=== PATIENT | male | born 1960 | race Two or more races ===

== ENCOUNTER 2021-04-13 12:27 | Emergency (ER) | payer MEDICARE, MEDICAID ==
[~2021-04-13] VITALS: Ht 193 cm; Wt 117.9 kg
[2021-04-13 13:18] LABS: Basophils # (auto) 0.1 10 ^3/uL (0-0.2); Hemoglobin 15.9 g/dL (13.5-17.5); Lymphocytes % (auto) 38.4 % (10.0-50.0)
[2021-04-13 13:19] LABS: Basophils % (auto) 0.9 % (0.0-2.0); Eosinophils # (auto) 0.8 10 ^3/uL (0-0.8); Eosinophils % (auto) 9.5 % (0.0-7.0); Hematocrit 46.6 % (41.0-53.0); Lymphocytes # (auto) 3.1 10 ^3/uL (0.4-5.4); Mean Corpuscular Hemoglobin 34.3 pg (28.0-32.0); Mean Corpuscular Hgb Conc. 34.1 g/dL (32.0-36.0); Mean Corpuscular Volume 100.7 fL (80.0-100.0); Monocytes # (auto) 0.9 10 ^3/uL (0-1.3); Monocytes % (auto) 11.9 % (0.0-12.0); Neutrophils # (auto) 3.1 10 ^3/uL (1.6-8.6); Neutrophils % (auto) 39.3 % (37.0-80.0); Red Blood Cells 4.63 10^6/uL (4.5-5.90); Red Cell Distribution Width 14.9 % (11.8-14.3)
[2021-04-13 13:21] LABS: Nucleated Red Blood Cells % 0.2 %
[2021-04-13 14:00] LABS: Phenytoin (Dilantin) 23.4 ug/mL (10-20)
[2021-04-13 14:45] LABS: Anion Gap 5 (5-15); Carbon Dioxide 27 mmol/L (21-32); Chloride 105 mmol/L (98-107); Glucose 84 mg/dL (74-106); Potassium 4.2 mmol/L (3.5-5.1); Sodium 137 mmol/L (136-145)
[2021-04-13 14:46] LABS: Alanine Aminotransferase 24 U/L (16-61); Albumin 2.8 g/dL (3.4-5.0); Alkaline Phosphatase 160 U/L (45-117); Aspartate Aminotransferase 29 U/L (15-37); BUN/Creatinine Ratio 19.6; Bilirubin, Total 0.3 mg/dL (0.2-1.0); Blood Urea Nitrogen 10 mg/dL (7-18); Calcium 8.1 mg/dL (8.5-10.1); GFR African American 212 mL/min; GFR Non-African American 176 mL/min; Total Protein 7.5 g/dL (6.4-8.2)
[2021-04-13 16:53] VITALS: BP 132/74
== END 2021-04-13 17:32 | disposition home or self-care (01) ==
LOC: EDBD 12:27 → ER 12:27
DX: R89.2 Abnormal level of other drugs, medicaments and biological substances in specimens from other organs, systems and tissues (principal); J44.9 Chronic obstructive pulmonary disease, unspecified; K21.9 Gastro-esophageal reflux disease without esophagitis; E78.5 Hyperlipidemia, unspecified; Z90.49 Acquired absence of other specified parts of digestive tract
CPT/HCPCS: 36415; 80053; 80184; 80185; 85025; 93005

== ENCOUNTER 2022-07-09 18:25 | Emergency (ER) | payer OTHER, MEDICARE, MEDICAID ==
[~2022-07-09] VITALS: Ht 193 cm; Wt 120.0 kg
[2022-07-09 22:59] LABS: Basophils # (auto) 0.1 10 ^3/uL (0-0.2); Basophils % (auto) 0.6 % (0.0-2.0); Eosinophils # (auto) 0.6 10 ^3/uL (0-0.8); Eosinophils % (auto) 7.2 % (0.0-7.0); Hematocrit 44.5 % (41.0-53.0); Hemoglobin 14.8 g/dL (13.5-17.5); Lymphocytes # (auto) 2.2 10 ^3/uL (0.4-5.4); Lymphocytes % (auto) 26.9 % (10.0-50.0); Mean Corpuscular Hemoglobin 33.7 pg (28.0-32.0); Mean Corpuscular Hgb Conc. 33.2 g/dL (32.0-36.0); Mean Corpuscular Volume 101.4 fL (80.0-100.0); Monocytes # (auto) 0.9 10 ^3/uL (0-1.3); Monocytes % (auto) 11.5 % (0.0-12.0); Neutrophils # (auto) 4.4 10 ^3/uL (1.6-8.6); Neutrophils % (auto) 53.8 % (37.0-80.0); Red Blood Cells 4.39 10^6/uL (4.5-5.90); Red Cell Distribution Width 14.8 % (11.8-14.3); White Blood Cell 8.2 10^3/uL (4.4-10.8)
[2022-07-09 23:12] LABS: INR 1.07 (0.9-1.15)
[2022-07-09 23:16] LABS: Albumin 2.5 g/dL (3.4-5.0); BUN/Creatinine Ratio 36.1 (10.0-20.0); Calcium 8.2 mg/dL (8.5-10.1); Potassium 3.7 mmol/L (3.5-5.1)
[2022-07-09 23:30] LABS: Bilirubin, Total 0.5 mg/dL (0.2-1.0); Total Protein 7.7 g/dL (6.4-8.2)
[2022-07-10] MEDS ORDERED: HYDROcodone-ACET 10/325MG TAB PO ONE
[2022-07-10 09:20] VITALS: BP 115/73
== END 2022-07-10 10:53 | disposition home or self-care (01) ==
LOC: EDBD 18:25 → EDSEX 18:25 → ER 18:30
DX: K62.5 Hemorrhage of anus and rectum (principal); R94.31 Abnormal electrocardiogram [ECG] [EKG]; J44.9 Chronic obstructive pulmonary disease, unspecified; K21.9 Gastro-esophageal reflux disease without esophagitis; E78.5 Hyperlipidemia, unspecified; Z90.49 Acquired absence of other specified parts of digestive tract
CPT/HCPCS: 36415; 71045; 71250; 74176; 80053; 84484; 85025; 85610; 93005

== ENCOUNTER 2023-11-13 11:25 | Inpatient (IN) | payer MEDICARE, MEDICAID ==
[~2023-11-13] VITALS: Ht 180.3 cm; Wt 116.8 kg
[2023-11-13 11:51] LABS: Basophils # (auto) 0.1 10 ^3/uL (0-0.2); Eosinophils # (auto) 0.4 10 ^3/uL (0-0.8); Hemoglobin 14.7 g/dL (13.5-17.5); Monocytes # (auto) 0.8 10 ^3/uL (0-1.3)
[2023-11-13 11:53] LABS: Basophils % (auto) 0.7 % (0.0-2.0); Eosinophils % (auto) 4.1 % (0.0-7.0); Hematocrit 43.3 % (41.0-53.0); Lymphocytes # (auto) 1.9 10 ^3/uL (0.4-5.4); Lymphocytes % (auto) 20.6 % (10.0-50.0); Mean Corpuscular Hemoglobin 35.2 pg (28.0-32.0); Mean Corpuscular Hgb Conc. 33.8 g/dL (32.0-36.0); Monocytes % (auto) 8.2 % (0.0-12.0); Neutrophils # (auto) 6.3 10 ^3/uL (1.6-8.6); Neutrophils % (auto) 66.4 % (37.0-80.0); Nucleated Red Blood Cells % 0.1 %; Platelet Count (auto) 202 10^3/uL (140-450); Red Blood Cells 4.16 10^6/uL (4.5-5.90); Red Cell Distribution Width 15.3 % (11.8-14.3); White Blood Cell 9.5 10^3/uL (4.4-10.8)
[2023-11-13 12:00] VITALS: PULSE 70; RESP 14; O2SAT 97
[2023-11-13 12:18] LABS: Alanine Aminotransferase 25 U/L (7-40); Albumin 3.6 g/dL (3.2-4.8); Alkaline Phosphatase 189 U/L (46-116); Anion Gap 7 (5-15); Aspartate Aminotransferase 32 U/L (13-40); Bilirubin, Total 0.2 mg/dL (0.2-1.0); Blood Urea Nitrogen 16 mg/dL (9-23); Calcium 8.4 mg/dL (8.7-10.4); Carbon Dioxide 31 mmol/L (20-30); Chloride 100 mmol/L (98-107); Glucose 116 mg/dL (74-106); Magnesium 1.7 mg/dL (1.6-2.6); Potassium 4.4 mmol/L (3.5-5.1); Sodium 138 mmol/L (136-145); Total Protein 7.2 g/dL (5.7-8.2)
[2023-11-13] MEDS: LACTULOSE 20Gm/30ML SOLN PO ONE (13:46)
[2023-11-13 20:00] VITALS: PULSE 85; RESP 18; O2SAT 95
[2023-11-13] MEDS ORDERED: ONDANSETRON HCL 4 MG/2 ML VIAL IV PRN (21:30)
[2023-11-13] MEDS ORDERED: TEMAZEPAM 15 MG CAP PO PRN (21:30)
[2023-11-13] MEDS ORDERED: ALBUTEROL SULF 2.5 MG/0.5ML(0.5%) NEB SOLN NEB PRN (21:30)
[2023-11-13] MEDS: ATORVASTATIN 20 MG TAB PO SCH (22:00)
[2023-11-13] MEDS: APIXABAN 5 MG TAB PO SCH (22:00)
[2023-11-13 22:22] LABS: Anion Gap 4 (5-15); Carbon Dioxide 33 mmol/L (20-30); Chloride 100 mmol/L (98-107); Potassium 3.8 mmol/L (3.5-5.1); Sodium 137 mmol/L (136-145)
[2023-11-13 22:23] LABS: Calcium 8.6 mg/dL (8.7-10.4)
[2023-11-13 22:28] LABS: BUN/Creatinine Ratio 19.6 (10.0-20.0); Blood Urea Nitrogen 10 mg/dL (9-23); Glucose 126 mg/dL (74-106)
[2023-11-13 22:39] LABS: INR 1.09 (0.9-1.15); Partial Thromboplastin Time 31.6 SEC (24.5-34.5); Prothrombin Time 11.5 sec (9.3-11.8)
[2023-11-13 22:46] VITALS: BP 107/51; PULSE 87; RESP 18; TEMP 99.7; O2SAT 95
[2023-11-14] VITALS (8 sets, daily range): BP systolic 96–121; BP diastolic 48–78; PULSE 68–77; RESP 16–18; TEMP 97.6–99.3; O2SAT 92–100
[2023-11-14] MEDS: FUROSEMIDE 40 MG TAB PO SCH (05:37)
[2023-11-14] MEDS: LACTULOSE 20Gm/30ML SOLN PO SCH (10:00)
[2023-11-14] MEDS ORDERED: LORazepam 2MG/ML-1ML VIAL IV PRN (17:30)
[2023-11-14] MEDS: FUROSEMIDE 20 MG/2 ML VIAL IV SCH (18:38)
[2023-11-14] MEDS: MUPIROCIN 2% OINT 15gm or 22gm FOR MRSA NARES EACHNOSTRI SCH (22:02)
[2023-11-15] VITALS (8 sets, daily range): BP systolic 103–147; BP diastolic 54–77; PULSE 67–95; RESP 16–20; TEMP 97.6–98.8; O2SAT 96–100
[2023-11-15] MEDS ORDERED: ATOR20TA50 PO (09:34)
[2023-11-15] MEDS ORDERED: APIX5TAB PO (09:34)
[2023-11-15] MEDS ORDERED: CETI-120 PO (09:34)
[2023-11-15] MEDS ORDERED: PHEN1CAP38 PO (09:34)
[2023-11-15] MEDS ORDERED: LOSA-535 PO (09:34)
[2023-11-15] MEDS ORDERED: ASCO500T11 PO (09:34)
[2023-11-15] MEDS ORDERED: PHEN32.44 PO (09:34)
[2023-11-15] MEDS ORDERED: POTA8TAB38 PO (09:34)
[2023-11-15] MEDS ORDERED: FERR325T20 PO (09:34)
[2023-11-15] MEDS ORDERED: FURO40TA4 PO (09:34)
[2023-11-15] MEDS ORDERED: FAMO-12 PO (09:34)
[2023-11-15] MEDS ORDERED: ESCI1TAB36 PO (09:34)
[2023-11-15] MEDS ORDERED: ASPI81CH74 PO (09:34)
[2023-11-15 11:19] LABS: Anion Gap 7 (5-15); Carbon Dioxide 34 mmol/L (20-31); Chloride 99 mmol/L (98-107); Hematocrit 44.5 % (41.0-53.0); Hemoglobin 15.5 g/dL (13.5-17.5); Mean Corpuscular Hemoglobin 36.3 pg (28.0-32.0); Mean Corpuscular Hgb Conc. 34.9 g/dL (32.0-36.0); Platelet Count (auto) 185 10^3/uL (140-450); Potassium 3.7 mmol/L (3.5-5.1); Red Blood Cells 4.28 10^6/uL (4.5-5.90); Red Cell Distribution Width 14.9 % (11.8-14.3); Sodium 140 mmol/L (136-145); White Blood Cell 9.7 10^3/uL (4.4-10.8)
[2023-11-15 11:20] LABS: Calcium 8.9 mg/dL (8.7-10.4)
[2023-11-15 11:23] LABS: Basophils % (manual) 0 (0.0-2.0); Blast Cells 0; Metamyelocytes % 0; Myelocytes % 0; Promyelocytes % 0; Reactive Lymphocytes 0
[2023-11-15 11:25] LABS: BUN/Creatinine Ratio 30.8 (10.0-20.0); Blood Urea Nitrogen 12 mg/dL (9-23); Glucose 86 mg/dL (74-106)
[2023-11-15 12:02] LABS: Band Neutrophils % (manual) 16; Eosinophils % (manual) 1 (0-7); Lymphocytes % (manual) 7 (10.0-50.0); Monocytes % (manual) 3 (0-12)
[2023-11-15 12:03] LABS: Platelet Estimate Adequate
[2023-11-15 18:19] LABS: Urine Bacteria FEW /hpf (None Seen); Urine Blood 3+ /uL (Negative); Urine Clarity Turbid (Clear); Urine Color Light-Orange (Yellow); Urine Mucus FEW (None Seen); Urine Protein, UAD 1+ (Negative); Urine Specific Gravity 1.023 (1.001-1.035); Urine Urobilinogen 4 mg/dL (Negative); Urine WBC 353 /hpf (0 - 3); Urine WBC Clumps PRESENT /hpf (None Seen); Urine pH 7.5 (5.0-9.0)
[2023-11-15] MEDS: cefTRIAXone 1GM/50ML D5W 50 ML IV ONE (22:57)
[2023-11-15] MEDS ORDERED: LORazepam 2MG/ML-1ML VIAL IV PRN (23:15)
[2023-11-16] VITALS (7 sets, daily range): BP systolic 87–121; BP diastolic 46–63; PULSE 70–86; RESP 15–19; TEMP 97.2–98.2; O2SAT 94–99
[2023-11-16] MEDS: PHENobarbital 32.4 MG TAB PO ONE (00:32)
[2023-11-16] MEDS: PHENobarbital 32.4 MG TAB PO SCH ×2 (05:40→13:49)
[2023-11-16] MEDS: cefTRIAXone 1GM/50ML D5W 50 ML IV SCH (09:16)
[2023-11-16 11:54] LABS: Basophils # (auto) 0 10 ^3/uL (0-0.2); Basophils % (auto) 0.7 % (0.0-2.0); Eosinophils # (auto) 0.4 10 ^3/uL (0-0.8); Eosinophils % (auto) 5.9 % (0.0-7.0); Hematocrit 40.1 % (41.0-53.0); Hemoglobin 13.6 g/dL (13.5-17.5); Lymphocytes # (auto) 1.6 10 ^3/uL (0.4-5.4); Lymphocytes % (auto) 23.8 % (10.0-50.0); Mean Corpuscular Hemoglobin 34.8 pg (28.0-32.0); Mean Corpuscular Hgb Conc. 33.8 g/dL (32.0-36.0); Mean Corpuscular Volume 102.9 fL (80.0-100.0); Monocytes # (auto) 1.1 10 ^3/uL (0-1.3); Monocytes % (auto) 16.8 % (0.0-12.0); Neutrophils # (auto) 3.6 10 ^3/uL (1.6-8.6); Neutrophils % (auto) 52.8 % (37.0-80.0); Nucleated Red Blood Cells % 0.1 %; Platelet Count (auto) 147 10^3/uL (140-450); Red Cell Distribution Width 14.6 % (11.8-14.3); White Blood Cell 6.8 10^3/uL (4.4-10.8)
[2023-11-16 12:10] LABS: Chloride 100 mmol/L (98-107); Potassium 3.1 mmol/L (3.5-5.1)
[2023-11-16 12:11] LABS: Carbon Dioxide 34 mmol/L (20-31)
[2023-11-16 12:14] LABS: Calcium 8.3 mg/dL (8.7-10.4)
[2023-11-16 12:16] LABS: BUN/Creatinine Ratio 26.8 (10.0-20.0); Blood Urea Nitrogen 11 mg/dL (9-23); Glucose 125 mg/dL (74-106)
[2023-11-16 12:40] LABS: Anion Gap 4 (5-15); Sodium 138 mmol/L (136-145)
[2023-11-16] MEDS: POTASSIUM EFFERVESENT TAB 25 MEQ PO ONE (13:40)
[2023-11-17] VITALS (10 sets, daily range): BP systolic 94–125; BP diastolic 58–70; PULSE 64–85; RESP 18–20; TEMP 97.5–98; O2SAT 96–100
[2023-11-17 06:24] LABS: Basophils # (auto) 0.1 10 ^3/uL (0-0.2); Eosinophils # (auto) 0.5 10 ^3/uL (0-0.8)
[2023-11-17 06:26] LABS: Basophils % (auto) 0.9 % (0.0-2.0); Eosinophils % (auto) 7.1 % (0.0-7.0); Hematocrit 39.6 % (41.0-53.0); Hemoglobin 13.4 g/dL (13.5-17.5); Lymphocytes # (auto) 2.1 10 ^3/uL (0.4-5.4); Lymphocytes % (auto) 31.6 % (10.0-50.0); Mean Corpuscular Hemoglobin 35.2 pg (28.0-32.0); Mean Corpuscular Hgb Conc. 33.8 g/dL (32.0-36.0); Mean Corpuscular Volume 104.1 fL (80.0-100.0); Monocytes # (auto) 1.1 10 ^3/uL (0-1.3); Monocytes % (auto) 16.1 % (0.0-12.0); Neutrophils # (auto) 2.9 10 ^3/uL (1.6-8.6); Neutrophils % (auto) 44.3 % (37.0-80.0); Nucleated Red Blood Cells % 0.1 %; Platelet Count (auto) 151 10^3/uL (140-450); Red Cell Distribution Width 15.1 % (11.8-14.3); White Blood Cell 6.6 10^3/uL (4.4-10.8)
[2023-11-17 06:28] LABS: Chloride 102 mmol/L (98-107); Potassium 3.7 mmol/L (3.5-5.1); Sodium 137 mmol/L (136-145)
[2023-11-17 06:29] LABS: Anion Gap 2 (5-15); Carbon Dioxide 33 mmol/L (20-31)
[2023-11-17 06:30] LABS: Calcium 8.6 mg/dL (8.7-10.4)
[2023-11-17 06:34] LABS: Glucose 91 mg/dL (74-106)
[2023-11-17 06:35] LABS: Blood Urea Nitrogen 6 mg/dL (9-23)
[2023-11-18] VITALS (8 sets, daily range): BP systolic 109–126; BP diastolic 61–80; PULSE 74–86; RESP 17–20; TEMP 97.6–98.7; O2SAT 94–99
[2023-11-18 07:41] LABS: Basophils # (auto) 0.1 10 ^3/uL (0-0.2); Eosinophils # (auto) 0.6 10 ^3/uL (0-0.8); Hematocrit 40.1 % (41.0-53.0); Hemoglobin 13.6 g/dL (13.5-17.5); Monocytes # (auto) 0.8 10 ^3/uL (0-1.3); Neutrophils # (auto) 2.4 10 ^3/uL (1.6-8.6); White Blood Cell 5.8 10^3/uL (4.4-10.8)
[2023-11-18 07:45] LABS: Eosinophils % (auto) 9.9 % (0.0-7.0); Lymphocytes % (auto) 33.9 % (10.0-50.0); Mean Corpuscular Hemoglobin 34.9 pg (28.0-32.0); Mean Corpuscular Hgb Conc. 33.9 g/dL (32.0-36.0); Monocytes % (auto) 13.3 % (0.0-12.0); Neutrophils % (auto) 41.9 % (37.0-80.0); Nucleated Red Blood Cells % 0.3 %; Platelet Count (auto) 180 10^3/uL (140-450); Red Blood Cells 3.89 10^6/uL (4.5-5.90); Red Cell Distribution Width 14.6 % (11.8-14.3)
[2023-11-18 07:54] LABS: Anion Gap 5 (5-15); Carbon Dioxide 34 mmol/L (20-31); Chloride 102 mmol/L (98-107); Potassium 3.9 mmol/L (3.5-5.1); Sodium 141 mmol/L (136-145)
[2023-11-18 07:56] LABS: Calcium 8.8 mg/dL (8.7-10.4)
[2023-11-18 08:00] LABS: Glucose 91 mg/dL (74-106)
[2023-11-18 08:01] LABS: BUN/Creatinine Ratio 19.4 (10.0-20.0); Blood Urea Nitrogen 6 mg/dL (9-23)
[2023-11-18] MEDS: FUROSEMIDE 20 MG/2 ML VIAL IV ONE (09:53)
[2023-11-18] MEDS: PHENYTOIN SODIUM 100 MG CAP PO SCH (22:00)
[2023-11-19] VITALS (8 sets, daily range): BP systolic 112–124; BP diastolic 65–75; PULSE 58–92; RESP 16–20; TEMP 97.6–98.9; O2SAT 93–97
[2023-11-19 07:40] LABS: Basophils # (auto) 0.1 10 ^3/uL (0-0.2); Eosinophils # (auto) 0.6 10 ^3/uL (0-0.8); Hemoglobin 13.9 g/dL (13.5-17.5); Monocytes # (auto) 0.6 10 ^3/uL (0-1.3); Monocytes % (auto) 10.7 % (0.0-12.0)
[2023-11-19 07:44] LABS: Basophils % (auto) 1.3 % (0.0-2.0); Eosinophils % (auto) 11.5 % (0.0-7.0); Hematocrit 40.3 % (41.0-53.0); Lymphocytes # (auto) 2.1 10 ^3/uL (0.4-5.4); Lymphocytes % (auto) 39.1 % (10.0-50.0); Mean Corpuscular Hemoglobin 35.3 pg (28.0-32.0); Mean Corpuscular Hgb Conc. 34.5 g/dL (32.0-36.0); Mean Corpuscular Volume 102.6 fL (80.0-100.0); Neutrophils % (auto) 37.4 % (37.0-80.0); Nucleated Red Blood Cells % 0.3 %; Platelet Count (auto) 182 10^3/uL (140-450); Red Blood Cells 3.93 10^6/uL (4.5-5.90); White Blood Cell 5.3 10^3/uL (4.4-10.8)
[2023-11-19 08:00] LABS: Chloride 101 mmol/L (98-107); Potassium 4.2 mmol/L (3.5-5.1); Sodium 141 mmol/L (136-145)
[2023-11-19 08:01] LABS: Anion Gap 4 (5-15); Calcium 8.8 mg/dL (8.7-10.4); Carbon Dioxide 36 mmol/L (20-31)
[2023-11-19 08:06] LABS: PSA Free 0.06 ng/mL; Prostate Specific Antigen 0.3 ng/mL (0.0-4.0)
[2023-11-19 08:06] LABS: BUN/Creatinine Ratio 22.9 (10.0-20.0); Blood Urea Nitrogen 8 mg/dL (9-23); Glucose 94 mg/dL (74-106)
[2023-11-20] VITALS (7 sets, daily range): BP systolic 96–113; BP diastolic 58–75; PULSE 66–90; RESP 18–21; TEMP 97.6–97.9; O2SAT 93–99
[2023-11-20 06:22] LABS: Basophils # (auto) 0.1 10 ^3/uL (0-0.2); Chloride 102 mmol/L (98-107); Eosinophils # (auto) 0.7 10 ^3/uL (0-0.8); Lymphocytes # (auto) 2.4 10 ^3/uL (0.4-5.4); Monocytes # (auto) 0.7 10 ^3/uL (0-1.3); Neutrophils # (auto) 2.4 10 ^3/uL (1.6-8.6); Nucleated Red Blood Cells % 0.3 %; Platelet Count (auto) 188 10^3/uL (140-450); Potassium 3.9 mmol/L (3.5-5.1); Sodium 137 mmol/L (136-145)
[2023-11-20 06:23] LABS: Anion Gap 3 (5-15); Calcium 8.8 mg/dL (8.7-10.4); Carbon Dioxide 32 mmol/L (20-31)
[2023-11-20 06:24] LABS: Eosinophils % (auto) 10.7 % (0.0-7.0); Hematocrit 39.2 % (41.0-53.0); Hemoglobin 13.6 g/dL (13.5-17.5); Mean Corpuscular Hemoglobin 35.6 pg (28.0-32.0); Mean Corpuscular Hgb Conc. 34.8 g/dL (32.0-36.0); Mean Corpuscular Volume 102.5 fL (80.0-100.0); Monocytes % (auto) 11.2 % (0.0-12.0); Neutrophils % (auto) 39.1 % (37.0-80.0); Red Blood Cells 3.83 10^6/uL (4.5-5.90); Red Cell Distribution Width 14.5 % (11.8-14.3); White Blood Cell 6.2 10^3/uL (4.4-10.8)
[2023-11-20 06:28] LABS: BUN/Creatinine Ratio 19.4 (10.0-20.0); Blood Urea Nitrogen 6 mg/dL (9-23); Glucose 88 mg/dL (74-106)
== END 2023-11-20 15:15 | disposition home or self-care (01) | DRG 92 ==
LOC: EDBD 11:25 → ER 11:25 → EDUNIT# 11:25 → CENTRAL 21:40 → OVERFLOW 21:40 → CENTRAL 23:51 → TELE-CENTR 11-16 03:36
PROVIDERS: ADMIT Internal Medicine; ATTEND Internal Medicine
DX: G92.8 Other toxic encephalopathy (principal); D68.59 Other primary thrombophilia; J44.1 Chronic obstructive pulmonary disease with (acute) exacerbation; E72.20 Disorder of urea cycle metabolism, unspecified; I42.9 Cardiomyopathy, unspecified; N30.00 Acute cystitis without hematuria; G40.409 Other generalized epilepsy and epileptic syndromes, not intractable, without status epilepticus; E87.6 Hypokalemia; I50.810 Right heart failure, unspecified; T42.0X5A Adverse effect of hydantoin derivatives, initial encounter; K21.9 Gastro-esophageal reflux disease without esophagitis; E78.5 Hyperlipidemia, unspecified; F79 Unspecified intellectual disabilities; E66.9 Obesity, unspecified; N40.0 Benign prostatic hyperplasia without lower urinary tract symptoms; R32 Unspecified urinary incontinence; R31.9 Hematuria, unspecified; I35.1 Nonrheumatic aortic (valve) insufficiency; I71.21 Aneurysm of the ascending aorta, without rupture; Z90.49 Acquired absence of other specified parts of digestive tract; Z74.01 Bed confinement status; Z68.35 Body mass index [BMI] 35.0-35.9, adult; Y92.9 Unspecified place or not applicable
CPT/HCPCS: 36415; 70450; 71045; 74176; 80048; 80053; 80184; 80185; 81001; 82140; 82962; 83605; 83735; 83880; 84154; 84484; 85007; 85025; 85027; 85610; 85730; 87081; 92610; 93005; 93306; 93970; 95819; G0378

== ENCOUNTER 2024-04-28 13:08 | Inpatient (IN) | payer MEDICARE, MEDICAID ==
[~2024-04-28] VITALS: Ht 182.9 cm; Wt 127.0 kg
[~2024-04-28 13:08] MED LIST: APIX5TAB PO; ASCO500T11 PO; ASPI81CH74 PO; ATOR20TA50 PO; CETI-120 PO; ESCI1TAB36 PO; FAMO-12 PO; FERR325T20 PO; FURO40TA4 PO; LOSA-535 PO; PHEN1CAP38 PO; PHEN32.44 PO; POTA8TAB38 PO
--- NOTE | 2024-04-28 13:20 | ECG ---
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
--- NOTE | 2024-04-28 13:23 | ED.PDOC ---
SOB-HPI HPI Comments 64 year old male TOM presents to the ED with chief complaint of SOB/cyanosis. EMS reports patient was being fed for lunch time at [facility] and when his nurse came by to check on him, patient was noted to be cyanotic around the mouth and foaming at the mouth. EMS relays 911 was called immediately and upon their arrival, patient was still cyanotic and foaming, so they immediately started suctioning on route to the ED. EMS states patient stopped foaming and cyanosis was resolved once patient was placed on 15L of O2 with an spO2 of 97% and patient was able to state he is "fine," but unable to provide his name. EMS notes patient went in and out of consciousness on route and needed to be sternal rubbed multiple times to wake up. EMS reports patient is currently on 10L of O2 with a mask at this time. Patient unable to answer any further questions at this time, unknown baseline mentation. Time Seen by MD: 13:14 Primary Care Provider: UNKNOWN Reviewed notes: Nurses Notes, Bander Notes, Medications, Allergies Information Source: Patient, Emergency Med Personnel Mode of Arrival: EMS Severity: Moderate Timing: Hours Duration: Since onset Context: At Rest PE Risk Factors: None History of: COPD, CHF Prehospital treatment: Oxygen Modifying Factors: Nothing Past Medical History PAST MEDICAL HISTORY: Arthritis, CHF, COPD, Depression, GERD, High Lipids, Seizures Past Medical History (Other): Marfan's Syndrome, Intellectual disability, Cardiomyopathy, Aortic Aneurygen, Aortic valve insufficiency Surgical History: Cholecystectomy Family History Family History: Unknown Social History Smoker: Non-Smoker Alcohol: Denies ETOH Use Drugs: Denies Drug Use Lives In: Residential Constitutional: denies: chills, diaphoresis, fatigue, fever, malaise, sweats, weakness, others EENTM: reports: others (Foaming at mouth); denies: blurred vision, double vision, ear bleeding, ear discharge, ear drainage, ear pain, ear ringing, eye pain, eye redness, hearing loss, mouth pain, mouth swelling, nasal discharge, nose bleeding, nose congestion, nose pain, photophobia, tearing, throat pain, throat swelling, voice changes Respiratory: reports: shortness of breath, others (Cyanosis of mouth); denies: cough, hemoptysis, orthopnea, SOB at rest, SOB with excertion, stridor, wheezing Cardiovascular: denies: chest pain, dizzy spells, diaphoresis, Dyspnea on exertion, edema, irregular heart beat, left arm pain, lightheadedness, palpitations, PND, syncope, others Gastrointestinal: denies: abdomen distended, abdominal pain, blood streaked bowels, constipated, diarrhea, dysphagia, difficulty swallowing, hematemesis, melena, nausea, poor appetite, poor fluid intake, rectal bleeding, rectal pain, vomiting, others Genitourinary: denies: burning, dysuria, flank pain, frequency, hematuria, incontinence, penile discharge, penile sore, pain, testicle pain, testicle swelling, urgency, others Neurological: denies: dizziness, fainting, headache, left sided numbness, left sided weakness, numbness, paresthesia, pre-existing deficit, right sided numbne ss, right sided weakness, seizure, speech problems, tingling, tremors, weakness, others Musculoskeletal: denies: back pain, gout, joint pain, joint swelling, muscle pain, muscle stiffness, neck pain, others Integumetry: denies: bruises, change in color, change in hair/nails, dryness, laceration, lesions, lumps, rash, wounds, others Allergic/Immunocompromised: denies: Difficulty Healing, Frequent Infections, Hives, Itching, others Hematologic/Lymphatic: denies: anemia, blood clots, easy bleeding, easy bruising, swollen glands, others Endocrine: denies: excessive hunger, excessive sweating, excessive thirst, excessive urination, flushing, intolerance to cold, intolerance to heat, unexplained weight gain, unexplained weight loss, others Psychiatric: denies: anxiety, bipolar disorder, depression, hopeless, panic disorder, schizophrenia, sleepless, suicidal, others Unable to Obtain due to: Altered Mental Status All Other Systems: Reviewed and Negative Physical Exam General Appearance: Moderate Distress HEENT: Normal ENT Inspection, Pharynx Normal, TMs Normal Neck: Limited Range of Motion, Non-Tender, Normal, Normal Inspection Respiratory: Chest Non-Tender, Decreased Breath Sounds, No Accessory Muscle Use, Respiratory Distress Cardiovascular: No Edema, No JVD, No Murmur, No Gallop, Normal Peripheral Pulses, Regular Rate/Rhythm Breast Exam: Deferred Gastrointestinal: No Organomegaly, Non Tender, No Pulsatile Mass, Normal Bowel Sounds, Soft Genitalia: Deferred Pelvic: Deferred Rectal: Deferred Extremities: No calf tenderness, Normal capillary refill, Pedal edema Musculoskeletal : Apperance: Normal 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 Was a procedure done?: No Differential Dx Differential Diagnosis: Asthma, Bronchitis, CHF, COPD, Pneumonia X-Ray, Labs, Meds, VS Vital Signs Date Time Temp Pulse Resp B/P (MAP) Pulse Ox O2 Delivery O2 Flow Rate FiO2 04/28/24 14:44 Simple Mask* 6 50 04/28/24 14:44 96.7 80 15 111/57 (75) 98 96.7 04/28/24 13:27 96.5 89 8 122/73 (89) 94 04/28/24 13:23 88 04/28/24 13:16 88 Lab Test 04/28/24 15:39 04/28/24 15:28 04/28/24 15:19 04/28/24 14:45 Range/Units Urine Color Light-yellow Yellow Urine Clarity Clear Clear Urine pH 6.5 5.0-9.0 Urine Specific [place] 1.015 1.001-1.035 Urine Protein Negative Negative Urine Ketones Negative Negative Urine Blood Negative Negative /uL Urine Nitrite Negative Negative Urine Bilirubin Negative Negative Urine Urobilinogen Normal Negative mg/dL Urine Leukocyte Esterase 3+ Negative /uL Urine RBC 2 0 - 3 /hpf Urine Microscopic WBC 46 H 0-3 /HPF Urine Squamous Epithelial Cells Few <5 /hpf Urine Bacteria Few H None Seen /hpf Urine Yeast (Budding) Occasional None Seen /hpf Urine Glucose Normal Normal mg/dL White Blood Count 10.2 4.4-10.8 10^3/uL Red Blood Count 4.09 L 4.5-5.90 10^6/uL Hemoglobin 13.8 13.5-17.5 g/dL Hematocrit 41.7 41.0-53.0 % Mean Corpuscular Volume 101.9 H 80.0-100.0 fL Mean Corpuscular Hemoglobin 33.6 H 28.0-32.0 pg Mean Corpuscular Hemoglobin Concent 33.0 32.0-36.0 g/dL Red Cell Distribution Width 15.3 H 11.8-14.3 % Platelet Count 159 140-450 10^3/uL Mean Platelet Volume 7.7 6.9-10.8 fL Neutrophils (%) (Auto) 49.9 37.0-80.0 % Lymphocytes (%) (Auto) 32.7 10.0-50.0 % Monocytes (%) (Auto) 13.6 H 0.0-12.0 % Eosinophils (%) (Auto) 3.4 0.0-7.0 % Basophils (%) (Auto) 0.4 0.0-2.0 % Neutrophils # (Auto) 5.1 1.6-8.6 10 ^3/uL Lymphocytes # (Auto) 3.3 0.4-5.4 10 ^3/uL Monocytes # (Auto) 1.4 H 0-1.3 10 ^3/uL Eosinophils # (Auto) 0.3 0-0.8 10 ^3/uL Basophils # (Auto) 0 0-0.2 10 ^3/uL Nucleated Red Blood Cells 0.1 % Influenza Type A Antigen Negative Negative Influenza Type B Antigen Negative Negative SARS-CoV-2 Antigen (Rapid) Negative NEGATIVE Sodium Level 142 136-145 mmol/L Potassium Level 3.5 3.5-5.1 mmol/L Chloride Level 101 98-107 mmol/L Carbon Dioxide Level 36 H 20-31 mmol/L Anion Gap 5 5-15 Blood Urea Nitrogen 16 9-23 mg/dL Creatinine 0.44 L 0.700-1.30 mg/dL Glomerular Filtration Rate Calc 118 >90 mL/min BUN/Creatinine Ratio 36.4 H 10.0-20.0 Serum Glucose 127 H 74-106 mg/dL Lactic Acid Level 1.4 0.4-2.0 mmol/L Calcium Level 8.3 L 8.7-10.4 mg/dL Troponin I High Sensitivity 5 </=54 ng/L B-Type Natriuretic Peptide 20.36 0-100 pg/mL X-ray of the chest shows: IMPRESSION: 1. Left basilar atelectasis. The patient's CBC is within normal limits The chemistry panel is within normal limits At this time, the patient continues to have some shortness a breath The patient's urine test is pending The patient is mental status remains slightly lethargic The lactic acid level is within normal limits The BNP is within normal limits The patient was being admitted to the hospitalist The patient also has a UTI and was given Rocephin IV piggyback Images Reviewed?: Images reviewed and evaluated by me Time of 1ST Reevaluation: 15:57 Reevaluation 1ST: Unchanged Patient Education/Counseling: Diagnosis, Treatment, Prognosis Family Education/Counseling: No Family Present Additional Information -Reviewed patient's previous visit(s): 01/13/24 for ALOC - The following tests were ordered, and results were reviewed by me: CBC, BMP, Lactic, Troponin, UA, BNP, Blood Culture, COVID-19, Influenza, EKG, Chest XR - Additional information was gathered from interviewing the following independent Historian: EMS - I reviewed and agreed with the following test results read by other provider: Chest XR - I discussed treatments and results with medical personnel and: patient Comprehensive systems review obtained and negative except for what is stated in the HPI. Departure 1 Departure Time of Disposition: 16:43 Impression: Primary Impression: Metabolic encephalopathy Additional Impression: UTI (urinary tract infection) Qualified Codes: N30.00 - Acute cystitis without hematuria Disposition: ADMITTED INPATIENT Admit to: Tele Condition: Fair Critical Care Note Critical Care Time?: Yes Stability Stability form required: Yes Unstable for transfer: Telemetry monitoring (Telemetry monitoring required), ED Physician Assesment (Clinical assesment) Heart Score Heart Score: Heart Score Response (Comments) Value History N/A 0 EKG N/A 0 Age N/A 0 Risk Factors N/A 0 Troponin N/A 0 Total 0 I personally scribed for PAO BRAUN MD ([email or web address]) on 04/28/24 at 13:23. Electronically submitted by Rajendra Penaloza ([email or web address]). I personally scribed for PAO BRAUN MD ([email or web address]) on 04/28/24 at 13:25. Electronically submitted by Rajendra Penaloza ([email or web address]). PAO BRAUN MD Apr 28, 2024 13:23
--- NOTE | 2024-04-28 14:03 | DVH ---
INDICATION: sob TECHNIQUE: Frontal view of the chest. COMPARISON: XY CHEST PORTABLE on DOS: 11/13/23, XY CHEST PORTABLE on DOS: 07/09/22 FINDINGS: LEFT BASILAR ATELECTASIS The heart and mediastinal contours are grossly unremarkable. There is no ev idence of pleural disease. . The bony structures of the chest are intact without fracture. IMPRESSION: 1. Left basilar atelectasis.
[2024-04-28 15:09] LABS: Chloride 101 mmol/L (98-107); Potassium 3.5 mmol/L (3.5-5.1); Sodium 142 mmol/L (136-145)
[2024-04-28 15:10] LABS: Anion Gap 5 (5-15)
[2024-04-28 15:12] LABS: Calcium 8.3 mg/dL (8.7-10.4); Carbon Dioxide 36 mmol/L (20-31)
[2024-04-28 15:16] LABS: BUN/Creatinine Ratio 36.4 (10.0-20.0); Blood Urea Nitrogen 16 mg/dL (9-23); Glucose 127 mg/dL (74-106)
[2024-04-28 15:50] LABS: Basophils # (auto) 0 10 ^3/uL (0-0.2); Basophils % (auto) 0.4 % (0.0-2.0); Eosinophils # (auto) 0.3 10 ^3/uL (0-0.8); Eosinophils % (auto) 3.4 % (0.0-7.0); Hematocrit 41.7 % (41.0-53.0); Hemoglobin 13.8 g/dL (13.5-17.5); Lymphocytes # (auto) 3.3 10 ^3/uL (0.4-5.4); Lymphocytes % (auto) 32.7 % (10.0-50.0); Mean Corpuscular Hemoglobin 33.6 pg (28.0-32.0); Mean Corpuscular Volume 101.9 fL (80.0-100.0); Monocytes # (auto) 1.4 10 ^3/uL (0-1.3); Monocytes % (auto) 13.6 % (0.0-12.0); Neutrophils # (auto) 5.1 10 ^3/uL (1.6-8.6); Neutrophils % (auto) 49.9 % (37.0-80.0); Nucleated Red Blood Cells % 0.1 %; Platelet Count (auto) 159 10^3/uL (140-450); Red Blood Cells 4.09 10^6/uL (4.5-5.90); Red Cell Distribution Width 15.3 % (11.8-14.3); White Blood Cell 10.2 10^3/uL (4.4-10.8)
[2024-04-28 16:14] LABS: Urine Bacteria FEW /hpf (None Seen); Urine Blood Negative /uL (Negative); Urine Budding Yeast OCCASIONAL /hpf (None Seen); Urine Clarity Clear (Clear); Urine Color Light-Yellow (Yellow); Urine Protein, UAD Negative (Negative); Urine Specific Gravity 1.015 (1.001-1.035); Urine Squamous Epithelial Cell FEW /hpf (<5); Urine Urobilinogen Normal (Negative); Urine WBC 46 /HPF (0-3); Urine pH 6.5 (5.0-9.0)
[2024-04-28 16:14] LABS: COVID19 ANTIGEN SOFIA FIA NEGATIVE (NEGATIVE); Rapid Influenza A Negative (Negative); Rapid Influenza B Negative (Negative)
[2024-04-28] MEDS: cefTRIAXone 1GM/50ML D5W 50 ML IV ONE (17:34)
[2024-04-28] MEDS ORDERED: NITROGLYCERIN 0.4 MG SL TAB SL PRN (19:30)
[2024-04-28] MEDS ORDERED: MORPHINE SULFATE INJ 2 MG/ml SYRG IV PRN (19:30)
[2024-04-28] MEDS ORDERED: ONDANSETRON HCL 4 MG/2 ML VIAL IV PRN (19:30)
[2024-04-28] MEDS ORDERED: ALBUTEROL SULF 2.5 MG/0.5ML(0.5%) NEB SOLN NEB PRN ×2 (19:30→22:00)
[2024-04-28 19:45] VITALS: PULSE 80; RESP 16; O2SAT 100
[2024-04-28 19:46] VITALS: BP 108/53; PULSE 83; RESP 20; O2SAT 100
--- NOTE | 2024-04-28 21:18 | DVH ---
CT HEAD WITHOUT CONTRAST INDICATION: AMS COMPARISON: CT HEAD WITHOUT CONTRAST on DOS: 11/13/23 TECHNIQUE: CT of the head without intravenous contrast. RADIATION DOSE: CTDIvol: 63.15 mGy, DLP: 1138.32 mGy*cm FINDINGS: There is no evidence of intracranial hemorrhage, infarct, extra-axial collection, mass effect, midli ne shift, herniation or hydrocephalus. The ventricles, sulci and cisterns are normal.The hidalgo-white d ifferentiation is intact. Visualized paranasal sinuses and mastoid air cells are clear. Soft tissues and osseous structures are unremarkable. IMPRESSION: No intracranial abnormality identified. No appreciable change compared to the prior CT scan from October 2023.
[2024-04-28] MEDS: ATORVASTATIN 20 MG TAB PO SCH (22:00)
[2024-04-28] MEDS: PHENYTOIN SODIUM 100 MG CAP PO SCH (22:00)
[2024-04-28] MEDS: PHENobarbital 32.4 MG TAB PO SCH (22:00)
--- NOTE | 2024-04-28 22:26 | DVHHP2 ---
History of Present Illness Reason for Visit: Altered mental status History of Present Illness 64-year-old male presents for evaluation of respiratory distress and altered mental status. Patient with a history of developmentally delayed and questionable dementia a resident at a care home. Patient started coughing while eating lunch this afternoon. Became became cyanotic, hypoxic and was foaming at the mouth. Patient is currently lethargic oriented x1 which is baseline. Past Medical History COPD, GERD, dyslipidemia, seizures CHF, Marfan syndrome Past Surgical History Cholecystectomy Family History Noncontributory Smoke: No ALCOHOL: none Drugs: None Lives: Usp Review of Systems Review of Systems Review of systems are limited due to the patient's altered mental status. Allergies: Coded Allergies: NO KNOWN ALLERGIES (Unverified , 04/13/21) Medications Current Medications Medications Dose Ordered Sig/Chris Route Start Time Stop Time Status Last Admin Dose Admin Phenobarbital 64.8 mg Q12HR PO 04/28/24 22:00 UNV Phenytoin Sodium 200 mg BID PO 04/28/24 22:00 UNV Ceftriaxone Sodium 50 ml @ 100 mls/hr DAILY@09 IV 04/29/24 09:00 UNV Apixaban 5 mg BID PO 04/28/24 22:00 UNV Aspirin 81 mg DAILY PO 04/29/24 10:00 UNV Atorvastatin Calcium 20 mg HS PO 04/28/24 22:00 UNV Furosemide 40 mg BIDD PO 04/29/24 06:00 UNV Albuterol 2.5 mg Q6HPRN PRN NEB 04/28/24 19:30 UNV Ondansetron HCl 4 mg Q4HP PRN IV 04/28/24 19:30 UNV Enoxaparin Sodium 40 mg DAILY SC 04/29/24 10:00 UNV Acetaminophen 650 mg Q6HP PRN PO 04/28/24 19:30 UNV Nitroglycerin 0.4 mg Q5MINP PRN SL 04/28/24 19:30 UNV Morphine Sulfate 2 mg Q30M PRN IV 04/28/24 19:30 UNV Exam Vital Signs Vital Signs Date Time Temp Pulse Resp B/P (MAP) Pulse Ox O2 Delivery O2 Flow Rate FiO2 04/28/24 20:00 84 04/28/24 19:46 20 108/53 100 6.0 04/28/24 19:46 Simple Mask* 50 04/28/24 19:45 99.5 99.5 Exam Gen: 64-year-old male in mild distress, lethargic Skin: Warm, dry, normal color and texture, no rash. HEENT: Normocephalic atraumatic, mucous membranes moist and pink. Neck: Cervical and supraclavicular nodes normal without enlargement, trachea is midline, thyroid gland is normal without masses. Pulmonary: Clear to auscultation and percussion bilaterally. Cardiac: Regular rate and rhythm. No murmur Abdomen: Soft, nontender, nondistended, bowel sounds present all 4 quadrants, no guarding, no rigidity, no organomegaly. Extremities: No cyanosis, clubbing, no edema Neuro: Lethargic, no focal motor deficits. Labs/Xrays ORDERING PHYSICIAN: PAO BRAUN MD PROCEDURE(s): CXRP - CHEST PORTABLE REASON: sob ORDER NUMBER(s): [id number], ACCESSION NUMBER(s): [id number] INDICATION: sob TECHNIQUE: Frontal view of the chest. COMPARISON: XY CHEST PORTABLE on DOS: 11/13/23, XY CHEST PORTABLE on DOS: 07/09/22 FINDINGS: LEFT BASILAR ATELECTASIS The heart and mediastinal contours are grossly unremarkable. There is no evidence of pleural disease. . The bony structures of the chest are intact without fracture. IMPRESSION: 1. Left basilar atelectasis. RING PHYSICIAN: RIN COYLE PROCEDURE(s): HWOCT - HEAD WITHOUT CONTRAST REASON: AMS ORDER NUMBER(s): [id number], ACCESSION NUMBER(s): [id number] CT HEAD WITHOUT CONTRAST INDICATION: AMS COMPARISON: CT HEAD WITHOUT CONTRAST on DOS: 11/13/23 TECHNIQUE: CT of the head without intravenous contrast. RADIATION DOSE: CTDIvol: 63.15 mGy, DLP: 1138.32 mGy*cm FINDINGS: There is no evidence of intracranial hemorrhage, infarct, extra-axial collection, mass effect, midline shift, herniation or hydrocephalus. The ventricles, sulci and cisterns are normal.The hidalgo-white differentiation is intact. Visualized paranasal sinuses and mastoid air cells are clear. Soft tissues and osseous structures are unremarkable. IMPRESSION: No intracranial abnormality identified. No appreciable change compared to the prior CT scan from October 2023. Labs Test 04/28/24 15:39 04/28/24 15:28 04/28/24 15:19 04/28/24 14:45 Range/Units Urine Color Light-yellow Yellow Urine Clarity Clear Clear Urine pH 6.5 5.0-9.0 Urine Specific [place] 1.015 1.001-1.035 Urine Protein Negative Negative Urine Ketones Negative Negative Urine Blood Negative Negative /uL Urine Nitrite Negative Negative Urine Bilirubin Negative Negative Urine Urobilinogen Normal Negative mg/dL Urine Leukocyte Esterase 3+ Negative /uL Urine RBC 2 0 - 3 /hpf Urine Microscopic WBC 46 H 0-3 /HPF Urine Squamous Epithelial Cells Few <5 /hpf Urine Bacteria Few H None Seen /hpf Urine Yeast (Budding) Occasional None Seen /hpf Urine Glucose Normal Normal mg/dL White Blood Count 10.2 4.4-10.8 10^3/uL Red Blood Count 4.09 L 4.5-5.90 10^6/uL Hemoglobin 13.8 13.5-17.5 g/dL Hematocrit 41.7 41.0-53.0 % Mean Corpuscular Volume 101.9 H 80.0-100.0 fL Mean Corpuscular Hemoglobin 33.6 H 28.0-32.0 pg Mean Corpuscular Hemoglobin Concent 33.0 32.0-36.0 g/dL Red Cell Distribution Width 15.3 H 11.8-14.3 % Platelet Count 159 140-450 10^3/uL Mean Platelet Volume 7.7 6.9-10.8 fL Neutrophils (%) (Auto) 49.9 37.0-80.0 % Lymphocytes (%) (Auto) 32.7 10.0-50.0 % Monocytes (%) (Auto) 13.6 H 0.0-12.0 % Eosinophils (%) (Auto) 3.4 0.0-7.0 % Basophils (%) (Auto) 0.4 0.0-2.0 % Neutrophils # (Auto) 5.1 1.6-8.6 10 ^3/uL Lymphocytes # (Auto) 3.3 0.4-5.4 10 ^3/uL Monocytes # (Auto) 1.4 H 0-1.3 10 ^3/uL Eosinophils # (Auto) 0.3 0-0.8 10 ^3/uL Basophils # (Auto) 0 0-0.2 10 ^3/uL Nucleated Red Blood Cells 0.1 % Influenza Type A Antigen Negative Negative Influenza Type B Antigen Negative Negative SARS-CoV-2 Antigen (Rapid) Negative NEGATIVE Sodium Level 142 136-145 mmol/L Potassium Level 3.5 3.5-5.1 mmol/L Chloride Level 101 98-107 mmol/L Carbon Dioxide Level 36 H 20-31 mmol/L Anion Gap 5 5-15 Blood Urea Nitrogen 16 9-23 mg/dL Creatinine 0.44 L 0.700-1.30 mg/dL Glomerular Filtration Rate Calc 118 >90 mL/min BUN/Creatinine Ratio 36.4 H 10.0-20.0 Serum Glucose 127 H 74-106 mg/dL Lactic Acid Level 1.4 0.4-2.0 mmol/L Calcium Level 8.3 L 8.7-10.4 mg/dL Troponin I High Sensitivity 5 </=54 ng/L B-Type Natriuretic Peptide 20.36 0-100 pg/mL Assessment/Plan Assessment/Plan Assessment Metabolic encephalopathy Acute respiratory distress Hypoxemia ? Aspiration pneumonia UTI History of seizure Hypotension CHF Plan Admit the patient to telemetry to the hospitalist Resume home medications Hold antihypertensives Rocephin/clindamycin Continue treatment per orders. Plan discussed with: Patient My Orders Orders - RIN COYLE AGACNP Procedure Category Date Status Time Head Without Contrast CT 04/28/24 Resulted 19:23 Phenobarbital Tablet PHA 04/28/24 Logged 22:00 Phenytoin Capsule PHA 04/28/24 Logged (Dilantin Capsule) 22:00 Ceftriaxone 1gm/50ml PHA 04/29/24 Logged D5w (Rocephin) 09:00 Urine Bacterial FRANCIS 04/28/24 In Process Culture 19:23 Apixaban (Eliquis) PHA 04/28/24 Logged 22:00 Aspirin Tablet PHA 04/29/24 Logged 10:00 Atorvastatin (Lipitor) PHA 04/28/24 Logged 22:00 Furosemide Tablet PHA 04/29/24 Logged (Lasix Tablet) 06:00 Albuterol Medneb PHA 04/28/24 Logged (Ventolin Medneb) 19:30 Basic Metabolic Panel LAB 04/29/24 Verified 04:00 Admit ADMIT 04/28/24 Transmitted 19:23 Ondansetron Hcl PHA 04/28/24 Logged (Zofran) 19:30 Enoxaparin Sodium [facility] 04/29/24 Logged (Lovenox) 10:00 Complete Blood Count LAB 04/29/24 Verified 04:00 Cardiac DIET 04/29/24 Transmitted Diet-2gna,Lofat,Lochol Breakfast Condition: Fair [place] 04/28/24 In Process 19:23 Acetaminophen Tablet [facility] 04/28/24 Logged (Tylenol Tablet) 19:30 Bedrest With Bathroom [facility] 04/28/24 In Process Privileg 19:23 Nitroglycerin [facility] 04/28/24 Logged Sublingual (Ntrostat 19:30 Morphine Sulfate [facility] 04/28/24 Logged Injection 19:30 Stat Ekg For Chest [facility] 04/28/24 In Process Pain 19:23 Notify Of Changes [facility] 04/28/24 In Process From Base 19:23 Roll Up Machine Operator For [facility] 04/28/24 In Process 24 Hours 19:23 Emergency Dysrhythmia [facility] 04/28/24 In Process Protocol 19:23 Rhythm Strips Once [facility] 04/28/24 In Process Every Shift 19:23 Oxygen By Nasal RT 04/28/24 Transmitted Cannula 19:23 Date of Service: Apr 28, 2024 Billing Provider: RIN COYLE Common Visit Codes: [id number] INP/OBS CARE (HIGH) RIN COYLE Apr 28, 2024 22:26
[2024-04-28] MEDS: CLINDAMYCIN 600MG IV 50 ML IV SCH (22:48)
[2024-04-29] VITALS (9 sets, daily range): BP systolic 92–108; BP diastolic 50–59; PULSE 77–87; RESP 16–18; TEMP 97.4–98.5; O2SAT 94–100
[2024-04-29] MEDS: FUROSEMIDE 40 MG TAB PO SCH (05:11)
[2024-04-29 06:52] LABS: Basophils # (auto) 0 10 ^3/uL (0-0.2); Eosinophils # (auto) 0.1 10 ^3/uL (0-0.8); Eosinophils % (auto) 0.5 % (0.0-7.0); Lymphocytes % (auto) 17.8 % (10.0-50.0); Red Cell Distribution Width 15.5 % (11.8-14.3)
[2024-04-29 06:55] LABS: Basophils % (auto) 0.2 % (0.0-2.0); Hemoglobin 13.5 g/dL (13.5-17.5); Lymphocytes # (auto) 3.4 10 ^3/uL (0.4-5.4); Mean Corpuscular Hemoglobin 34.6 pg (28.0-32.0); Mean Corpuscular Hgb Conc. 33.7 g/dL (32.0-36.0); Mean Corpuscular Volume 102.5 fL (80.0-100.0); Monocytes # (auto) 3.1 10 ^3/uL (0-1.3); Monocytes % (auto) 16.2 % (0.0-12.0); Neutrophils # (auto) 12.5 10 ^3/uL (1.6-8.6); Neutrophils % (auto) 65.3 % (37.0-80.0); Platelet Count (auto) 140 10^3/uL (140-450); White Blood Cell 19.1 10^3/uL (4.4-10.8)
[2024-04-29 06:59] LABS: Chloride 102 mmol/L (98-107); Sodium 137 mmol/L (136-145)
[2024-04-29 07:00] LABS: Anion Gap 7 (5-15); Carbon Dioxide 28 mmol/L (20-31)
[2024-04-29 07:02] LABS: Calcium 8.5 mg/dL (8.7-10.4)
[2024-04-29 07:05] LABS: BUN/Creatinine Ratio 21.4 (10.0-20.0); Glucose 102 mg/dL (74-106)
[2024-04-29 07:07] LABS: Blood Urea Nitrogen 9 mg/dL (9-23)
[2024-04-29] MEDS: APIXABAN 5 MG TAB PO SCH (09:14)
[2024-04-29] MEDS: ASPirin 81 mg TAB PO SCH (09:16)
[2024-04-29] MEDS: ENOXAPARIN SOD 40 MG/0.4 ML SYRINGE SC SCH (11:23)
[2024-04-29] MEDS: AZITHROMYCIN 500MG/ 250ML 250 ML IV ONE (13:05)
--- NOTE | 2024-04-29 13:30 | DVHPNRES ---
Progress Note Date Seen: Apr 29, 2024 Resident Creating Document: JOHN HEARN RESIDENT Medical Necessity Reason Pt with a Central, PICC or Fol: Yes The following are medically ne: Marte Catheter Subjective Review of Systems Patient is a 64-year-old male with a past medical history as described below was brought to the ED via EMS after for difficulty breathing and altered level of consciousness. According to the EMS records, patient was being fed for lunch time at [facility] and when his nurse came by to check on him, patient was noted to be cyanotic around the mouth and foaming at the mouth. EMS relays 911 was called immediately and upon their arrival, patient was still cyanotic and foaming, so they immediately started suctioning on route to the ED. EMS states patient stopped foaming and cyanosis was resolved once patient was placed on 15L of O2 with an spO2 of 97% and patient was able to state he is "fine," but unable to provide his name. EMS notes patient went in and out of consciousness on route and needed to be sternal rubbed multiple times to wake up. Patient was initially placed on 6 L oxygen via simple face mask and was subsequently titrated down to 2 L of oxygen via nasal cannula. Past medical history: Marfan's syndrome, thoracic aortic aneurysm , seizure disorder, intellectual disability, cardiomyopathy , COPD Past surgical history: Cholecystectomy Home medications: Eliquis, losartan, furosemide, atorvastatin, escitalopram phenobarbital, phenytoin Social history: Patient lives in [facility] and has been bed- bound since the last 5 years. Review of systems Patient was seen and examined at the bedside Patient is alert and oriented x2, follows commands but is not able to answer questions about any pain, does not report of acute complaints Objective vital signs Vital Sign Date Time Temp Pulse Resp B/P (MAP) Pulse Ox O2 Delivery O2 Flow Rate FiO2 04/29/24 10:36 94 Nasal Cannula* 2 28 04/29/24 10:33 98.5 80 18 108/59 (75) 98.5 Total Intake and Output 04/28/24 04/28/24 04/29/24 15:00 23:00 07:00 Intake Total 50 ml 100 ml Output Total 1200 ml Balance 50 ml -1100 ml medications Current Medications Medications Dose Ordered Sig/Chris Route Start Time Stop Time Status Last Admin Dose Admin Phenobarbital 64.8 mg Q12HR PO 04/28/24 22:00 Phenytoin Sodium 200 mg BID PO 04/28/24 22:00 Hold Ceftriaxone Sodium 50 ml @ 100 mls/hr Q24H IV 04/29/24 21:00 Apixaban 5 mg BID PO 04/28/24 22:00 Hold Aspirin 81 mg DAILY PO 04/29/24 10:00 Atorvastatin Calcium 20 mg HS PO 04/28/24 22:00 Furosemide 40 mg BIDD PO 04/29/24 06:00 Albuterol 2.5 mg Q6HPRN PRN NEB 04/28/24 19:30 Ondansetron HCl 4 mg Q4HP PRN IV 04/28/24 19:30 Enoxaparin Sodium 40 mg DAILY SC 04/29/24 10:00 04/29/24 11:23 40 MG Acetaminophen 650 mg Q6HP PRN PO 04/28/24 19:30 Nitroglycerin 0.4 mg Q5MINP PRN SL 04/28/24 19:30 Morphine Sulfate 2 mg Q30M PRN IV 04/28/24 19:30 Azithromycin 250 ml @ 125 mls/hr DAILY IV 04/30/24 10:00 Examination Constitutional: Patient is A&O x2, appears to be in no acute respiratory distress Gen - no pallor, no icterus, no cyanosis, no clubbing, no LAD, 2+ pitting edema in the bilateral lower extremities Skin - Patients skin is warm and dry. HEENT - normocephalic, atraumatic, moist mucous membranes. Neck - full ROM, no LAD, no JVD Pulmonary - B/L diminished breath sounds with bibasilar fine inspiratory crackles. No wheezing cardiovascular - normal S1,S2 heard. no murmurs heard. GI - soft abdomen without tenderness to palpation. no hepatospleenomegaly. Bowel sounds normoactive Neurological - Bilateral upper extremity strength 4/5, not able to move his bilateral lower extremities, no facial droop, poorly comprehensible speech no tremor, no sensory deficiets. laboratory and microbiology Laboratory Tests 04/29/24 06:33 Test 04/29/24 06:33 Range/Units Serum Glucose 102 74-106 mg/dL Microbiology Date/Time Source Procedure Growth Status 04/28/24 15:39 Voided Urine Urine Culture - Preliminary Resulted Problem List/Assessment/Plan Problem List/Assessment/Plan Acute metabolic versus toxic encephalopathy Phenytoin toxicity - head CT: No acute intracranial abnormality - phenytoin level elevated at 31--> 34.9 - daily phenytoin levels Acute on chronic hypoxic respiratory failure Suspected aspiration pneumonia - CXR: Right medial lower lobe opacity, left lower lobe atelectasis - swallow evaluation completed; placed on pureed diet - albuterol med neb 2.5 mg q.8hr - IV ceftriaxone and azithromycin - Marfan syndrome History of dilated ascending aorta - aspirin 81 mg p.o. - atorvastatin 20 mg Seizure disorder - held phenytoin - continued on phenobarbital UTI - UA: 3+, WBC 43, few bacteria - urine culture pending - started IV ceftriaxone Hypercoagulable state - at home patient was on Eliquis 5 mg b.i.d. - put on Lovenox therapeutic dose DVT prophylaxis: Lovenox therapeutic dose Goals of care: Full code, contact in the system alejandra was tried to be contacted but the number is wrong. Plan discussed with Dr. Ferrer Plan discussed with: Patient, Other ( RN ( Esperanza )) My Orders My Orders Orders - JOHN HEARN Procedure Category Date Status Time Mrsa Screen FRANCIS 04/29/24 In Process 11:18 Azithromycin 500mg/ PHA 04/30/24 In Process 250ml (Zithromax 50 10:00 Date of Service: Apr 29, 2024 Billing Provider: MELANIE FERRER MD Common Visit Codes: [id number] INP/OBS CARE(HIGH) JOHN HEARN RESIDENT Apr 29, 2024 13:30 MELANIE FERRER MD May 04, 2024 15:37
[2024-04-29] MEDS: SODIUM CHLORIDE 0.9% 500 ML IV ONE (20:03)
[2024-04-29] MEDS: cefTRIAXone 1GM/50ML D5W 50 ML IV SCH (21:41)
[2024-04-29] MEDS: PHENobarbital 32.4 MG TAB PO SCH (21:41)
[2024-04-29] MEDS: ALBUTEROL SULF 2.5 MG/0.5ML(0.5%) NEB SOLN NEB SCH (22:13)
[2024-04-29] MEDS: ENOXAPARIN SOD 120 MG/0.8 ML SYRINGE SC SCH (22:30)
[2024-04-30] VITALS (12 sets, daily range): BP systolic 97–115; BP diastolic 52–61; PULSE 71–82; RESP 16–20; TEMP 97–98.9; O2SAT 94–100
[2024-04-30 07:29] LABS: Hemoglobin 12.5 g/dL (13.5-17.5); Lymphocytes # (auto) 3.3 10 ^3/uL (0.4-5.4); Monocytes # (auto) 1.4 10 ^3/uL (0-1.3); Monocytes % (auto) 16.9 % (0.0-12.0); Nucleated Red Blood Cells % 0.2 %
[2024-04-30 07:30] LABS: Alanine Aminotransferase 21 U/L (7-40); Albumin 3.3 g/dL (3.2-4.8); Anion Gap 7 (5-15); Aspartate Aminotransferase 32 U/L (13-40); BUN/Creatinine Ratio 29.4 (10.0-20.0); Blood Urea Nitrogen 10 mg/dL (9-23); Carbon Dioxide 31 mmol/L (20-31); Chloride 101 mmol/L (98-107); Sodium 139 mmol/L (136-145); Total Protein 6.5 g/dL (5.7-8.2)
[2024-04-30 07:31] LABS: Bilirubin, Total 0.4 mg/dL (0.2-1.0)
[2024-04-30 07:33] LABS: Basophils # (auto) 0.1 10 ^3/uL (0-0.2); Basophils % (auto) 0.6 % (0.0-2.0); Eosinophils # (auto) 0.5 10 ^3/uL (0-0.8); Eosinophils % (auto) 5.5 % (0.0-7.0); Hematocrit 37.7 % (41.0-53.0); Lymphocytes % (auto) 38.6 % (10.0-50.0); Mean Corpuscular Hgb Conc. 33.1 g/dL (32.0-36.0); Mean Corpuscular Volume 102.9 fL (80.0-100.0); Neutrophils # (auto) 3.2 10 ^3/uL (1.6-8.6); Neutrophils % (auto) 38.4 % (37.0-80.0); Platelet Count (auto) 122 10^3/uL (140-450); Red Blood Cells 3.66 10^6/uL (4.5-5.90); Red Cell Distribution Width 14.8 % (11.8-14.3); White Blood Cell 8.4 10^3/uL (4.4-10.8)
[2024-04-30 07:34] LABS: Alkaline Phosphatase 136 U/L (46-116); Calcium 8.3 mg/dL (8.7-10.4); Glucose 71 mg/dL (74-106)
[2024-04-30] MEDS: AZITHROMYCIN 500MG/ 250ML 250 ML IV SCH (10:14)
--- NOTE | 2024-04-30 10:23 | DVH ---
EXAM: XY CHEST XRAY 1 VIEW Indication: SOB Technique: Single frontal view of the chest was obtained Comparison: XY CHEST PORTABLE on DOS: 04/28/24, XY CHEST PORTABLE on DOS: 11/13/23, XY CHEST PORTABLE o n DOS: 07/09/22 FINDINGS: Lines and Tubes: None Lungs: Diffuse interstitial opacities. Left retrocardiac opacity. Pleura: No effusion. No pneumothorax. Cardiomediastinal contours: Cardiomegaly.. Bones: No acute osseous abnormality. IMPRESSION: Cardiomegaly. Pulmonary vascular congestion. Left retrocardiac opacity.
[2024-04-30] MEDS ORDERED: PHENobarbital 32.4 MG TAB PO SCH (12:00)
[2024-04-30] MEDS ORDERED: VANCOMYCIN PER PHARMACY 0 MG IV SCH (19:15)
--- NOTE | 2024-04-30 19:19 | DVHPNRES ---
Progress Note Date Seen: Apr 30, 2024 Resident Creating Document: JOHN HEARN RESIDENT Medical Necessity Reason Pt with a Central, PICC or Fol: Yes The following are medically ne: Marte Catheter Subjective Review of Systems Patient is seen and examined at the bedside. Patient is alert and oriented x2 and appears to be more alert than yesterday. Patient follows commands and does not report any acute complaints. Objective vital signs Vital Sign Date Time Temp Pulse Resp B/P (MAP) Pulse Ox O2 Delivery O2 Flow Rate FiO2 04/30/24 17:06 98.8 74 18 97/52 (67) 94 98.8 04/30/24 08:00 Nasal Cannula* 2 28 Total Intake and Output 04/29/24 04/29/24 04/30/24 15:00 23:00 07:00 Intake Total 660 ml 500 ml Output Total 300 ml 650 ml Balance 360 ml -150 ml medications Current Medications Medications Dose Ordered Sig/Chris Route Start Time Stop Time Status Last Admin Dose Admin Phenytoin Sodium 200 mg BID PO 04/28/24 22:00 Hold Ceftriaxone Sodium 50 ml @ 100 mls/hr Q24H IV 04/29/24 21:00 04/29/24 21:41 100 MLS/HR Aspirin 81 mg DAILY PO 04/29/24 10:00 04/30/24 10:14 81 MG Atorvastatin Calcium 20 mg HS PO 04/28/24 22:00 04/29/24 21:41 20 MG Ondansetron HCl 4 mg Q4HP PRN IV 04/28/24 19:30 Acetaminophen 650 mg Q6HP PRN PO 04/28/24 19:30 Nitroglycerin 0.4 mg Q5MINP PRN SL 04/28/24 19:30 Azithromycin 250 ml @ 125 mls/hr DAILY IV 04/30/24 10:00 04/30/24 10:14 125 MLS/HR Phenobarbital 64.8 mg Q12HR PO 04/29/24 22:00 04/30/24 10:15 64.8 MG Phenobarbital 32.4 mg DAILY PO 04/30/24 12:00 Hold Albuterol 2.5 mg Q8HR NEB 04/29/24 22:00 04/30/24 06:41 2.5 MG Mupirocin 1 applic BID EACHNOSTRI 04/30/24 22:00 05/05/24 21:59 Enoxaparin Sodium 120 mg Q12HR SC 04/30/24 22:00 Vancomycin HCl 0 ml @ 0 mls/hr UD IV 04/30/24 19:15 UNV Examination Constitutional: Patient is A&O x2, appears to be in no acute respiratory distress Gen - no pallor, no icterus, no cyanosis, no clubbing, no LAD, 2+ pitting edema in the bilateral lower extremities Skin - Patients skin is warm and dry. HEENT - normocephalic, atraumatic, moist mucous membranes. Neck - full ROM, no LAD, no JVD Pulmonary - B/L diminished breath sounds with bibasilar fine inspiratory crackles. No wheezing cardiovascular - normal S1,S2 heard. no murmurs heard. GI - soft abdomen without tenderness to palpation. no hepatospleenomegaly. Bowel sounds normoactive Neurological - Bilateral upper extremity strength 4/5, not able to move his bilateral lower extremities, no facial droop, poorly comprehensible speech no tremor, no sensory deficiets. Sacrum- 3X5 cm wound in the medial sacrum with dark red periwound Right buttock noted with 3 X 3 cm dark red/maroon soft boggy to touch Left lower buttocks/system also noted with intact dark red maroon soft boggy area laboratory and microbiology Laboratory Tests 04/30/24 05:38 Test 04/30/24 05:38 Range/Units Serum Glucose 71 L 74-106 mg/dL Microbiology Date/Time Source Procedure Growth Status 04/29/24 11:23 Nose MRSA Screen - Final Methicillin Resistant S.aureus Complete 04/28/24 15:39 Voided Urine Urine Culture - Preliminary Resulted 04/28/24 14:45 Blood Blood Culture - Preliminary NO GROWTH AFTER 48 HOURS OF INCUBATION. Resulted Problem List/Assessment/Plan Problem List/Assessment/Plan Acute metabolic versus toxic encephalopathy Phenytoin toxicity - head CT: No acute intracranial abnormality - phenytoin level elevated at 31--> 34.9 - daily phenytoin levels Acute on chronic hypoxic respiratory failure Suspected aspiration pneumonia - CXR: Right medial lower lobe opacity, left lower lobe atelectasis - swallow evaluation completed; placed on pureed diet - albuterol med neb 2.5 mg q.8hr - IV ceftriaxone and azithromycin Sacral wound, with likely deep tissue injury - wound cultures pending - patient is started on vancomycin - on ceftriaxone - wound care done Marfan syndrome History of dilated ascending aorta - aspirin 81 mg p.o. - atorvastatin 20 mg Seizure disorder - held phenytoin - phenytoin levels decreasing, still supratherapeutic. - continued on phenobarbital UTI - UA: 3+, WBC 43, few bacteria - urine culture pending - started IV ceftriaxone Hypercoagulable state - at home patient was on Eliquis 5 mg b.i.d. - put on Lovenox therapeutic dose DVT prophylaxis: Lovenox therapeutic dose Goals of care: contact in the system alejandra ford (sister) was tried to be contacted but the number is wrong. Plan discussed with Dr. Lin Plan discussed with: Other (RN (Esperanza )) My Orders My Orders Orders - JOHN HEARN Procedure Category Date Status Time Chest Xray 1 View XY 04/30/24 Resulted 07:30 Wound Culture W/ Gs FRANCIS 04/30/24 In Process 12:08 Mupirocin 2% Oint PHA 04/30/24 In Process Mrsa Nares (Bactroban 22:00 * Dietary Consult CONS 04/30/24 Transmitted 14:47 Cleanse Wound With BROOKE 04/30/24 In Process Wound Clean 11:51 Order Specialty BROOKE 04/30/24 In Process Mattress 14:49 Enoxaparin Sodium PHA 04/30/24 In Process (Lovenox) 22:00 Vancomycin Per PHA 04/30/24 Logged Pharmacy 19:15 Date of Service: Apr 30, 2024 Billing Provider: MELANIE LIN MD Common Visit Codes: [id number] INP/OBS CARE(HIGH) JOHN HEARN RESIDENT Apr 30, 2024 19:19 MELANIE LIN MD May 04, 2024 15:49
[2024-04-30] MEDS: VANCOMYCIN 1GM/250ML KIT 250 ML IV SCH (21:15)
[2024-04-30] MEDS: MUPIROCIN 2% OINT 15gm or 22gm FOR MRSA NARES EACHNOSTRI SCH (22:00)
[2024-04-30] MEDS: ENOXAPARIN SOD 120 MG/0.8 ML SYRINGE SC SCH (22:11)
[2024-05-01] VITALS (15 sets, daily range): BP systolic 103–130; BP diastolic 54–71; PULSE 61–81; RESP 14–20; TEMP 97.6–98.4; O2SAT 92–100
[2024-05-01 05:43] LABS: Eosinophils # (auto) 0.5 10 ^3/uL (0-0.8); Hemoglobin 12.5 g/dL (13.5-17.5); Monocytes # (auto) 0.6 10 ^3/uL (0-1.3); Platelet Count (auto) 162 10^3/uL (140-450)
[2024-05-01 05:45] LABS: Basophils # (auto) 0 10 ^3/uL (0-0.2); Basophils % (auto) 0.7 % (0.0-2.0); Eosinophils % (auto) 8.3 % (0.0-7.0); Hematocrit 36.3 % (41.0-53.0); Lymphocytes # (auto) 2.7 10 ^3/uL (0.4-5.4); Lymphocytes % (auto) 47.2 % (10.0-50.0); Mean Corpuscular Hemoglobin 34.4 pg (28.0-32.0); Mean Corpuscular Hgb Conc. 34.5 g/dL (32.0-36.0); Mean Corpuscular Volume 99.6 fL (80.0-100.0); Neutrophils % (auto) 33.8 % (37.0-80.0); Nucleated Red Blood Cells % 0.1 %; Red Blood Cells 3.64 10^6/uL (4.5-5.90); White Blood Cell 5.8 10^3/uL (4.4-10.8)
[2024-05-01 05:50] LABS: Chloride 103 mmol/L (98-107); Potassium 3.7 mmol/L (3.5-5.1); Sodium 141 mmol/L (136-145)
[2024-05-01 05:51] LABS: Anion Gap 5 (5-15)
[2024-05-01 05:52] LABS: Calcium 8.7 mg/dL (8.7-10.4)
[2024-05-01 06:16] LABS: Blood Urea Nitrogen 8 mg/dL (9-23); Carbon Dioxide 33 mmol/L (20-31); Glucose 108 mg/dL (74-106)
[2024-05-01] MEDS: VANCOMYCIN 1.5GM/300ML 300 ML IV SCH (10:14)
--- NOTE | 2024-05-01 17:53 | DVHPNRES ---
Progress Note Date Seen: May 01, 2024 Resident Creating Document: JOHN HEARN RESIDENT Medical Necessity Reason Pt with a Central, PICC or Fol: Yes The following are medically ne: Marte Catheter Subjective Review of Systems Patient is seen and examined at the bedside. Patient is alert and oriented x2 and appears to be more alert than yesterday. Patient follows commands and does not report any acute complaints. Objective vital signs Vital Sign Date Time Temp Pulse Resp B/P (MAP) Pulse Ox O2 Delivery O2 Flow Rate FiO2 05/01/24 17:00 98.4 78 16 105/66 (79) 93 98.4 05/01/24 13:35 Nasal Cannula 2.0 05/01/24 13:35 28 Total Intake and Output 04/30/24 04/30/24 05/01/24 15:00 23:00 07:00 Intake Total 475 ml 345 ml 120 ml Output Total 750 ml 1400 ml Balance 475 ml -405 ml -1280 ml medications Current Medications Medications Dose Ordered Sig/Chris Route Start Time Stop Time Status Last Admin Dose Admin Phenytoin Sodium 200 mg BID PO 04/28/24 22:00 Hold Ceftriaxone Sodium 50 ml @ 100 mls/hr Q24H IV 04/29/24 21:00 04/30/24 21:53 100 MLS/HR Aspirin 81 mg DAILY PO 04/29/24 10:00 05/01/24 10:15 81 MG Atorvastatin Calcium 20 mg HS PO 04/28/24 22:00 04/30/24 22:09 20 MG Ondansetron HCl 4 mg Q4HP PRN IV 04/28/24 19:30 Acetaminophen 650 mg Q6HP PRN PO 04/28/24 19:30 Nitroglycerin 0.4 mg Q5MINP PRN SL 04/28/24 19:30 Azithromycin 250 ml @ 125 mls/hr DAILY IV 04/30/24 10:00 05/01/24 12:00 125 MLS/HR Phenobarbital 64.8 mg Q12HR PO 04/29/24 22:00 05/01/24 10:14 64.8 MG Phenobarbital 32.4 mg DAILY PO 04/30/24 12:00 Hold Albuterol 2.5 mg Q8HR NEB 04/29/24 22:00 05/01/24 13:35 2.5 MG Mupirocin 1 applic BID EACHNOSTRI 04/30/24 22:00 05/05/24 21:59 05/01/24 10:14 1 APPLIC Enoxaparin Sodium 120 mg Q12HR SC 04/30/24 22:00 05/01/24 10:13 120 MG Vancomycin HCl 0 ml @ 0 mls/hr UD IV 04/30/24 19:15 Vancomycin HCl 300 ml @ 200 mls/hr Q12H IV 05/01/24 09:00 05/01/24 10:14 200 MLS/HR Examination Constitutional: Patient is A&O x2, appears to be in no acute respiratory distress Gen - no pallor, no icterus, no cyanosis, no clubbing, no LAD, 2+ pitting edema in the bilateral lower extremities Skin - Patients skin is warm and dry. HEENT - normocephalic, atraumatic, moist mucous membranes. Neck - full ROM, no LAD, no JVD Pulmonary - B/L diminished breath sounds with bibasilar fine inspiratory crackles. No wheezing cardiovascular - normal S1,S2 heard. no murmurs heard. GI - soft abdomen without tenderness to palpation. no hepatospleenomegaly. Bowel sounds normoactive Neurological - Bilateral upper extremity strength 4/5, not able to move his bilateral lower extremities, no facial droop, poorly comprehensible speech no tremor, no sensory deficiets. Sacrum- 3X5 cm wound in the medial sacrum with dark red periwound Right buttock noted with 3 X 3 cm dark red/maroon soft boggy to touch Left lower buttocks/system also noted with intact dark red maroon soft boggy area laboratory and microbiology Laboratory Tests 05/01/24 05:22 Test 05/01/24 05:22 Range/Units Serum Glucose 108 H 74-106 mg/dL Microbiology Date/Time Source Procedure Growth Status 04/30/24 11:30 Buttock Left Gram Stain - Final Resulted 04/30/24 11:30 Buttock Left Wound Culture - Preliminary Resulted 04/28/24 15:39 Voided Urine Urine Culture - Preliminary Resulted 04/28/24 14:45 Blood Blood Culture - Preliminary NO GROWTH AFTER 72 HOURS OF INCUBATION. Resulted Problem List/Assessment/Plan Problem List/Assessment/Plan Acute metabolic versus toxic encephalopathy Phenytoin toxicity - head CT: No acute intracranial abnormality - phenytoin level elevated at 31--> 34.9->25 - daily phenytoin levels Acute on chronic hypoxic respiratory failure Suspected aspiration pneumonia - CXR: Right medial lower lobe opacity, left lower lobe atelectasis - swallow evaluation completed; placed on pureed diet - albuterol med neb 2.5 mg q.8hr - IV ceftriaxone and azithromycin Sacral wound, with likely deep tissue injury - wound cultures pending - patient is started on vancomycin - on ceftriaxone - wound care done Marfan syndrome History of dilated ascending aorta - aspirin 81 mg p.o. - atorvastatin 20 mg Seizure disorder - held phenytoin - phenytoin levels decreasing, still supratherapeutic. - continued on phenobarbital UTI - UA: 3+, WBC 43, few bacteria - urine culture pending - started IV ceftriaxone Hypercoagulable state - at home patient was on Eliquis 5 mg b.i.d. - put on Lovenox therapeutic dose DVT prophylaxis: Lovenox therapeutic dose Goals of care: contact in the system alejandra ford (sister) was tried to be contacted but the number is wrong. Plan discussed with Dr. Lin Plan discussed with: Other (RN ( Roger )) My Orders My Orders Orders - JOHN HEARN RESIDENT Procedure Category Date Status Time Vancomycin Per PHA 04/30/24 In Process Pharmacy 19:15 Vancomycin 1.5gm/300ml PHA 05/01/24 In Process 09:00 Vancomycin Per BROOKE 04/30/24 In Process Pharmacy Protoc 21:35 Vancomycin,Trough LAB 05/02/24 Verified 08:00 Vancomycin Per BROOKE 05/02/24 In Process Pharmacy Protoc 09:00 Creatinine LAB 05/02/24 Verified 08:00 * Insert Operator CONS 05/01/24 Transmitted Consult Dietary Evaluation Review Comments: 1. Pureed diet with thickend liquids. Pt stated height is 6' 4", based on assessment he needs, additional supplements for energy and protein. 2. Supplement his pureed with Glucerna 240 ml TID for additiional 43 g pro ans 864 kcal, with added thickner at bedside by STUDENT SPECIALIST. 3. Promote wound healing, CORBIN BID either orange (aspartame sweetner) or fruit punch (sugar as sweetner), add thickner at bedside. Expected Outcomes/Goals: Increase PO intake, avoid wt loss Date of Service: May 01, 2024 Billing Provider: MELANIE LIN MD Common Visit Codes: [id number] INP/OBS CARE(HIGH) JOHN HEARN RESIDENT May 01, 2024 17:53 MELANIE LIN MD May 04, 2024 16:03
[2024-05-01] MEDS: ACETAMINOPHEN 325 MG TAB PO PRN (18:50)
[2024-05-02] VITALS (11 sets, daily range): BP systolic 92–116; BP diastolic 56–69; PULSE 73–91; RESP 14–18; TEMP 97.2–98.2; O2SAT 94–100
[2024-05-02] MEDS: Glucerna Carbsteady SHAKE Vanilla 8oz PO SCH (08:00)
[2024-05-02] MEDS: Juven Orange Powder PACKET 27.5gm PO SCH (08:00)
[2024-05-02 08:24] LABS: Basophils # (auto) 0.1 10 ^3/uL (0-0.2); Eosinophils # (auto) 0.5 10 ^3/uL (0-0.8); Lymphocytes # (auto) 2.2 10 ^3/uL (0.4-5.4); Monocytes # (auto) 0.6 10 ^3/uL (0-1.3); Nucleated Red Blood Cells % 0.1 %; Platelet Count (auto) 182 10^3/uL (140-450); Red Cell Distribution Width 14.9 % (11.8-14.3)
[2024-05-02 08:27] LABS: Basophils % (auto) 0.9 % (0.0-2.0); Eosinophils % (auto) 8.4 % (0.0-7.0); Hematocrit 37.1 % (41.0-53.0); Hemoglobin 12.8 g/dL (13.5-17.5); Lymphocytes % (auto) 34.7 % (10.0-50.0); Mean Corpuscular Hemoglobin 34.8 pg (28.0-32.0); Mean Corpuscular Hgb Conc. 34.6 g/dL (32.0-36.0); Mean Corpuscular Volume 100.5 fL (80.0-100.0); Monocytes % (auto) 9.5 % (0.0-12.0); Neutrophils % (auto) 46.5 % (37.0-80.0); Red Blood Cells 3.69 10^6/uL (4.5-5.90); White Blood Cell 6.4 10^3/uL (4.4-10.8)
[2024-05-02 08:44] LABS: Chloride 104 mmol/L (98-107); Potassium 4.2 mmol/L (3.5-5.1); Sodium 141 mmol/L (136-145)
[2024-05-02 08:45] LABS: Anion Gap 6 (5-15)
[2024-05-02 08:48] LABS: Calcium 8.5 mg/dL (8.7-10.4); Carbon Dioxide 31 mmol/L (20-31)
[2024-05-02 08:50] LABS: BUN/Creatinine Ratio 24.3 (10.0-20.0); Glucose 80 mg/dL (74-106)
[2024-05-02 08:51] LABS: Blood Urea Nitrogen 9 mg/dL (9-23)
[2024-05-02] MEDS: PIPERACILLIN-TAZOB 3.375GM 100 ML IV ONE (15:30)
--- NOTE | 2024-05-02 16:22 | DVHPNRES ---
Progress Note Date Seen: May 02, 2024 Resident Creating Document: JOSEP MONIQUE RESIDENT Medical Necessity Reason Pt with a Central, PICC or Fol: Yes The following are medically ne: Marte Catheter Subjective Review of Systems Patient was examined at bedside, still unable to resume phenytoin as phenytoin level still high. Vancomycin trough still in the higher side for which vancomycin was held for now. MRSA positive, azithromycin was changed, patient was started on Zosyn 3 .375, previously reviewing kidney function creatinine 0.37 and BUN 9. Blood pressure in the lower side systolic in the 90s and 100s for which furosemide was not administered today. We will continue monitoring blood pressure , phenytoin levels, vancomycin trough closely. Patient reports: No new complaints Changes from previous H/P or p: No Changes Objective vital signs Vital Sign Date Time Temp Pulse Resp B/P (MAP) Pulse Ox O2 Delivery O2 Flow Rate FiO2 05/02/24 15:05 73 14 100 05/02/24 14:57 Nasal Cannula 2.0 05/02/24 14:57 28 05/02/24 13:30 97.3 92/58 (69) 97.3 Total Intake and Output 05/01/24 05/01/24 05/02/24 15:00 23:00 07:00 Intake Total 550 ml 1310 ml 300 ml Output Total 1200 ml 1600 ml Balance 550 ml 110 ml -1300 ml medications Current Medications Medications Dose Ordered Sig/Chris Route Start Time Stop Time Status Last Admin Dose Admin Phenytoin Sodium 200 mg BID PO 04/28/24 22:00 Hold Ceftriaxone Sodium 50 ml @ 100 mls/hr Q24H IV 04/29/24 21:00 05/01/24 20:32 100 MLS/HR Aspirin 81 mg DAILY PO 04/29/24 10:00 05/02/24 09:10 81 MG Atorvastatin Calcium 20 mg HS PO 04/28/24 22:00 05/01/24 20:32 20 MG Ondansetron HCl 4 mg Q4HP PRN IV 04/28/24 19:30 Acetaminophen 650 mg Q6HP PRN PO 04/28/24 19:30 05/01/24 18:50 650 MG Nitroglycerin 0.4 mg Q5MINP PRN SL 04/28/24 19:30 Phenobarbital 64.8 mg Q12HR PO 04/29/24 22:00 05/02/24 09:10 64.8 MG Phenobarbital 32.4 mg DAILY PO 04/30/24 12:00 Hold Albuterol 2.5 mg Q8HR NEB 04/29/24 22:00 05/02/24 14:57 2.5 MG Mupirocin 1 applic BID EACHNOSTRI 04/30/24 22:00 05/05/24 21:59 05/02/24 09:12 1 APPLIC Enoxaparin Sodium 120 mg Q12HR SC 04/30/24 22:00 05/02/24 09:10 120 MG Vancomycin HCl 0 ml @ 0 mls/hr UD IV 04/30/24 19:15 Enteral Nutritional Formula 27.5 gm BIDWM PO 05/02/24 08:00 05/02/24 08:00 27.5 GM Enteral Nutritional Formula 240 ml TIDWM PO 05/02/24 08:00 05/02/24 12:00 240 ML Piperacillin Sod/ Tazobactam Sod 100 ml @ 25 mls/hr Q6HR IV 05/03/24 00:00 Examination: GENERAL:Abnormal, HEENT:Normal, NECK:Normal, LUNGS:Normal, CVS:Normal, ABDOMEN:Normal, MSK:Abnormal, SKIN:Abnormal, NEURO:Abnormal laboratory and microbiology Laboratory Tests 05/02/24 07:55 Test 05/02/24 07:55 Range/Units Serum Glucose 80 74-106 mg/dL Microbiology Date/Time Source Procedure Growth Status 04/30/24 11:30 Buttock Left Gram Stain - Final Complete 04/30/24 11:30 Wound Culture - Final Enterococcus faecalis Methicillin Resistant S.aureus Providencia staurtii Complete 04/28/24 15:39 Voided Urine Urine Culture - Final Proteus mirabilis Complete 04/28/24 14:45 Blood Blood Culture - Preliminary NO GROWTH AFTER 72 HOURS OF INCUBATION. Resulted Labs and/or images reviewed: Labs reviewed by me, Image(s) reviewed by me Problem List/Assessment/Plan Problem List/Assessment/Plan Acute metabolic versus toxic encephalopathy Phenytoin toxicity - head CT: No acute intracranial abnormality - phenytoin level still elevated - daily phenytoin levels Acute on chronic hypoxic respiratory failure Suspected aspiration pneumonia - CXR: Right medial lower lobe opacity, left lower lobe atelectasis - swallow evaluation completed; placed on pureed diet - albuterol med neb 2.5 mg q.8hr - IV Zosyn Sacral wound, with likely deep tissue injury - wound cultures positive for E faecalis, MRSA - vancomycin was held - zosyn was started. - on ceftriaxone - wound care done Marfan syndrome History of dilated ascending aorta - aspirin 81 mg p.o. - atorvastatin 20 mg Seizure disorder - held phenytoin - phenytoin levels decreasing, still supratherapeutic. - continued on phenobarbital UTI - started IV ceftriaxone Hypercoagulable state - at home patient was on Eliquis 5 mg b.i.d. - put on Lovenox therapeutic dose DVT prophylaxis: Lovenox therapeutic dose case discussed with goals of care discussed with the patient for 32 minutes code status: full code Plan discussed with: Patient Dietary Evaluation Review Comments: 1. Pureed diet with thickend liquids. Pt stated height is 6' 4", based on assessment he needs, additional supplements for energy and protein. 2. Supplement his pureed with Glucerna 240 ml TID for additiional 43 g pro ans 864 kcal, with added thickner at bedside by ENERGY ECONOMIST. 3. Promote wound healing, CORBIN BID either orange (aspartame sweetner) or fruit punch (sugar as sweetner), add thickner at bedside. Expected Outcomes/Goals: Increase PO intake, avoid wt loss Date of Service: May 02, 2024 Billing Provider: JOHNNY GAMBOA MD Common Visit Codes: [id number] INP/OBS CARE(HIGH) JOSEP MONIQUE RESIDENT May 02, 2024 16:22 JOHNNY GAMBOA MD May 04, 2024 21:19
[2024-05-02] MEDS: PIPERACILLIN-TAZOB 3.375GM 100 ML IV SCH (23:47)
[2024-05-03] VITALS (14 sets, daily range): BP systolic 90–120; BP diastolic 54–70; PULSE 65–82; RESP 16–19; TEMP 97.2–97.8; O2SAT 96–100
[2024-05-03 06:07] LABS: Basophils # (auto) 0.1 10 ^3/uL (0-0.2); Basophils % (auto) 1.2 % (0.0-2.0); Eosinophils # (auto) 0.5 10 ^3/uL (0-0.8); Eosinophils % (auto) 8.7 % (0.0-7.0); Hematocrit 37.2 % (41.0-53.0); Hemoglobin 12.6 g/dL (13.5-17.5); Lymphocytes # (auto) 2.1 10 ^3/uL (0.4-5.4); Lymphocytes % (auto) 40.7 % (10.0-50.0); Mean Corpuscular Hemoglobin 33.9 pg (28.0-32.0); Mean Corpuscular Hgb Conc. 33.8 g/dL (32.0-36.0); Mean Corpuscular Volume 100.1 fL (80.0-100.0); Monocytes # (auto) 0.6 10 ^3/uL (0-1.3); Monocytes % (auto) 12.4 % (0.0-12.0); Neutrophils # (auto) 1.9 10 ^3/uL (1.6-8.6); Nucleated Red Blood Cells % 0.2 %; Platelet Count (auto) 190 10^3/uL (140-450); Red Blood Cells 3.72 10^6/uL (4.5-5.90); Red Cell Distribution Width 14.8 % (11.8-14.3); White Blood Cell 5.2 10^3/uL (4.4-10.8)
[2024-05-03 06:15] LABS: Chloride 103 mmol/L (98-107); Potassium 4.4 mmol/L (3.5-5.1); Sodium 141 mmol/L (136-145)
[2024-05-03 06:16] LABS: Anion Gap 6 (5-15)
[2024-05-03 06:21] LABS: BUN/Creatinine Ratio 20.5 (10.0-20.0); Glucose 88 mg/dL (74-106)
[2024-05-03 06:35] LABS: Blood Urea Nitrogen 8 mg/dL (9-23); Calcium 8.6 mg/dL (8.7-10.4); Carbon Dioxide 32 mmol/L (20-31)
[2024-05-03] MEDS: VANCOMYCIN 1GM/250ML KIT 250 ML IV SCH (11:58)
--- NOTE | 2024-05-03 13:50 | DVHPNRES ---
Progress Note Date Seen: May 03, 2024 Resident Creating Document: JOHN HEARN RESIDENT Medical Necessity Reason Pt with a Central, PICC or Fol: Yes The following are medically ne: Marte Catheter Subjective Review of Systems Patient is alert and oriented x 3 and appears to be better than yesterday. Follows command and does not report any acute complaints Objective vital signs Vital Sign Date Time Temp Pulse Resp B/P (MAP) Pulse Ox O2 Delivery O2 Flow Rate FiO2 05/03/24 12:41 97.8 74 17 120/70 (87) 96 97.8 05/03/24 07:56 Nasal Cannula 2.0 05/03/24 07:56 28 Total Intake and Output 05/02/24 05/02/24 05/03/24 15:00 23:00 07:00 Intake Total 250 ml 1150 ml 150 ml Output Total 850 ml 950 ml Balance 250 ml 300 ml -800 ml medications Current Medications Medications Dose Ordered Sig/Chris Route Start Time Stop Time Status Last Admin Dose Admin Phenytoin Sodium 200 mg BID PO 04/28/24 22:00 05/03/24 11:58 200 MG Aspirin 81 mg DAILY PO 04/29/24 10:00 05/03/24 11:29 81 MG Atorvastatin Calcium 20 mg HS PO 04/28/24 22:00 05/02/24 21:42 20 MG Ondansetron HCl 4 mg Q4HP PRN IV 04/28/24 19:30 Acetaminophen 650 mg Q6HP PRN PO 04/28/24 19:30 05/03/24 05:51 650 MG Nitroglycerin 0.4 mg Q5MINP PRN SL 04/28/24 19:30 Phenobarbital 64.8 mg Q12HR PO 04/29/24 22:00 05/03/24 11:28 64.8 MG Phenobarbital 32.4 mg DAILY PO 04/30/24 12:00 Hold Albuterol 2.5 mg Q8HR NEB 04/29/24 22:00 05/03/24 07:56 2.5 MG Mupirocin 1 applic BID EACHNOSTRI 04/30/24 22:00 05/05/24 21:59 05/03/24 11:57 1 APPLIC Enoxaparin Sodium 120 mg Q12HR SC 04/30/24 22:00 05/03/24 11:31 120 MG Vancomycin HCl 0 ml @ 0 mls/hr UD IV 04/30/24 19:15 Enteral Nutritional Formula 27.5 gm BIDWM PO 05/02/24 08:00 05/03/24 08:04 27.5 GM Enteral Nutritional Formula 240 ml TIDWM PO 05/02/24 08:00 05/03/24 12:03 240 ML Piperacillin Sod/ Tazobactam Sod 100 ml @ 25 mls/hr Q6HR IV 05/03/24 00:00 05/03/24 05:02 25 MLS/HR Vancomycin HCl 250 ml @ 250 mls/hr Q12H IV 05/03/24 11:00 05/03/24 11:58 250 MLS/HR Furosemide 40 mg DAILY PO 05/04/24 10:00 Examination Constitutional: Patient is A&O x3, appears to be in no acute respiratory distress Gen - no pallor, no icterus, no cyanosis, no clubbing, no LAD, 2+ pitting edema in the bilateral lower extremities Skin - Patients skin is warm and dry. HEENT - normocephalic, atraumatic, moist mucous membranes. Neck - full ROM, no LAD, no JVD Pulmonary - B/L equal air entry with bilateral inspiratory crackles. No wheezing cardiovascular - normal S1,S2 heard. no murmurs heard. GI - soft abdomen without tenderness to palpation. no hepatospleenomegaly. Bowel sounds normoactive Neurological - Bilateral upper extremity strength 4/5, not able to move his bilateral lower extremities, no facial droop, poorly comprehensible speech no tremor, no sensory deficiets. Sacrum- 3X5 cm wound in the medial sacrum with dark red periwound Right buttock noted with 3 X 3 cm dark red/maroon soft boggy to touch Left lower buttocks/system also noted with intact dark red maroon soft boggy area laboratory and microbiology Laboratory Tests 05/03/24 05:17 Test 05/03/24 05:17 Range/Units Serum Glucose 88 74-106 mg/dL Microbiology Date/Time Source Procedure Growth Status 04/30/24 11:30 Buttock Left Gram Stain - Final Complete 04/30/24 11:30 Wound Culture - Final Enterococcus faecalis Methicillin Resistant S.aureus Providencia staurtii Complete 04/28/24 15:39 Voided Urine Urine Culture - Final Proteus mirabilis Complete 04/28/24 14:45 Blood Blood Culture - Preliminary NO GROWTH AFTER 72 HOURS OF INCUBATION. Resulted Problem List/Assessment/Plan Problem List/Assessment/Plan Acute metabolic versus toxic encephalopathy Phenytoin toxicity - head CT: No acute intracranial abnormality - phenytoin level elevated at 31--> 34.9->25->16.1 - daily phenytoin levels Acute on chronic hypoxic respiratory failure Suspected aspiration pneumonia Suspected heart failure with reduced ejection fraction - CXR: Right medial lower lobe opacity, left lower lobe atelectasis - swallow evaluation completed; placed on pureed diet - albuterol med neb 2.5 mg q.8hr - IV vancomycin and Zosyn - oxygen requirement at 2 liter/minute, we will try to titrate the oxygen down - patient was done 40 mg p.o. Lasix - echo pending Sacral wound, with likely deep tissue injury MRSA positive - wound cultures showing growth of Enterococcus faecalis, MRSA, Providencia stuartii and sensitivities noted - on vancomycin and Zosyn - daily wound care Marfan syndrome History of dilated ascending aorta - aspirin 81 mg p.o. - atorvastatin 20 mg Seizure disorder - held phenytoin - phenytoin level within the normal range < 20, started today on phenytoin 200mg bid - continued on phenobarbital 64.8mg bid UTI - UA: 3+, WBC 43, few bacteria - urine culture showing growth of proteus mirabilis and sensitivities to ABx noted. - on zosyn Hypercoagulable state - at home patient was on Eliquis 5 mg b.i.d. - put on Lovenox therapeutic dose DVT prophylaxis: Lovenox therapeutic dose Goals of care: contact in the system alejandra ford (sister) was tried to be contacted but the number is wrong. Plan discussed with Dr. Gamboa Plan discussed with: Other (RN ( Melony )) My Orders My Orders Orders - JOHN HEARN RESIDENT Procedure Category Date Status Time Vitamin B12 LAB 05/03/24 In Process 08:01 Folate (Folic Acid) LAB 05/03/24 In Process 08:01 Vancomycin 1gm/250ml PHA 05/03/24 In Process Kit 11:00 Vancomycin Per BROOKE 05/03/24 In Process Pharmacy Protoc 11:05 Creatinine LAB 05/04/24 Verified 04:00 Vancomycin,Trough LAB 05/04/24 Verified 22:00 Furosemide Tablet PHA 05/04/24 In Process (Lasix Tablet) 10:00 Echo 2d Mode Cardiac US 05/03/24 Logged DOP 13:37 Dietary Evaluation Review Comments: 1. Pureed diet with thickend liquids. Pt stated height is 6' 4", based on assessment he needs, additional supplements for energy and protein. 2. Supplement his pureed with Glucerna 240 ml TID for additiional 43 g pro ans 864 kcal, with added thickner at bedside by LOADMASTER. 3. Promote wound healing, CORBIN BID either orange (aspartame sweetner) or fruit punch (sugar as sweetner), add thickner at bedside. Expected Outcomes/Goals: Increase PO intake, avoid wt loss Date of Service: May 03, 2024 Billing Provider: JOHNNY GAMBOA MD Common Visit Codes: [id number] INP/OBS CARE(HIGH) JOHN HEARN RESIDENT May 03, 2024 13:50 JOHNNY GAMBOA MD May 04, 2024 21:25
[2024-05-03] MEDS: FUROSEMIDE 40 MG TAB PO ONE (14:53)
--- NOTE | 2024-05-03 21:23 | DVHSR ---
APPROVED REPORT EXAM: Two-dimensional and M-mode echocardiogram with Doppler and color Doppler. Blood Pressure: 120/70 mmHg INDICATION SOB, B/L crackles RISK FACTORS Height: 71, Weight: 283 DIMENSIONS LVDd5.8 (3.8-5.7cm)LA (2D)5.2 (1.9-4.0cm)Aortic Root5.3 (2.0-3.7cm) LVDs4.2 (2.5-4.0cm)LA (MM) (1.9-4.0cm)Aortic Cusp Exc (1.5-2.0cm) EF (%) 54.0 (55-70%)Rt. Atrium3.5 (1.9-4.0cm)Asc. Aorta cm Mitral Valve MitralMitral Stenosis E/A ratio0.02D MVAcm2 Aortic Valve Aortic ValveAortic Stenosis V10.78m/Aleksey Mean GR.4mmHg V21.40m/Aleksey Peak GR.8mmHg LVOT Diameter3.1 (1.8-2.4cm)Doppler AVA4.20cm2 AI P 1/2 Menv652.05ms Pulmonic Valve V20.81m/s Tricuspid Valve TR Velocity2.38m/s [id number] Other Information Technically limited study due to body habitus and patient position. Conclusion LV EF IS 65% AND IS NORMAL MODERATELY DILATED LA MODERATELY DILATED RV MODERATE DEGREE AORTIC REGURGITATION GROSSLY NORMAL VALVES NO EFFUSION NORMAL RVSP IS 23 MM OF HG AND IS NORMAL
[2024-05-04] VITALS (10 sets, daily range): BP systolic 96–109; BP diastolic 51–62; PULSE 56–99; RESP 16–20; TEMP 97.5–97.8; O2SAT 93–100
[2024-05-04 06:25] LABS: Basophils # (auto) 0.1 10 ^3/uL (0-0.2); Basophils % (auto) 1.1 % (0.0-2.0); Eosinophils # (auto) 0.6 10 ^3/uL (0-0.8); Eosinophils % (auto) 11.2 % (0.0-7.0); Hematocrit 34.2 % (41.0-53.0); Hemoglobin 11.9 g/dL (13.5-17.5); Lymphocytes # (auto) 1.8 10 ^3/uL (0.4-5.4); Lymphocytes % (auto) 35.5 % (10.0-50.0); Mean Corpuscular Hemoglobin 34.9 pg (28.0-32.0); Mean Corpuscular Hgb Conc. 34.9 g/dL (32.0-36.0); Monocytes # (auto) 0.6 10 ^3/uL (0-1.3); Monocytes % (auto) 12.7 % (0.0-12.0); Neutrophils % (auto) 39.5 % (37.0-80.0); Nucleated Red Blood Cells % 0.1 %; Platelet Count (auto) 187 10^3/uL (140-450); Red Blood Cells 3.42 10^6/uL (4.5-5.90); Red Cell Distribution Width 14.6 % (11.8-14.3); White Blood Cell 5.1 10^3/uL (4.4-10.8)
[2024-05-04 06:38] LABS: Chloride 106 mmol/L (98-107); Potassium 4.5 mmol/L (3.5-5.1); Sodium 142 mmol/L (136-145)
[2024-05-04 06:39] LABS: Anion Gap 6 (5-15); Carbon Dioxide 30 mmol/L (20-31)
[2024-05-04 06:44] LABS: BUN/Creatinine Ratio 28.9 (10.0-20.0); Blood Urea Nitrogen 13 mg/dL (9-23); Glucose 100 mg/dL (74-106)
[2024-05-04 06:48] LABS: Calcium 8.6 mg/dL (8.7-10.4)
[2024-05-04] MEDS ORDERED: FUROSEMIDE 40 MG TAB PO SCH ×2 (10:00→22:00)
[2024-05-04 10:20] LABS: Folate (Folic Acid) 5.16 ng/mL (>5.38)
[2024-05-04] MEDS ORDERED: PHEN1CAP38 PO (14:58)
[2024-05-04] MEDS ORDERED: LOSA-534 PO (14:58)
[2024-05-04] MEDS ORDERED: CEFD300C2 PO (15:03)
[2024-05-04] MEDS ORDERED: LINE1TAB6 PO (15:03)
[2024-05-04] MEDS ORDERED: LOSA-535 PO (15:28)
--- NOTE | 2024-05-04 18:01 | DVHDSRES ---
Discharge Summary Date of Admission Resident Creating Document: JOHN HEARN RESIDENT Apr 28, 2024 at 19:23 Date of Discharge: May 04, 2024 Admitting Diagnosis Metabolic encephalopathy Acute respiratory distress Hypoxemia ? Aspiration pneumonia UTI History of seizure Hypotension CHF Wounds: Sacrum- 3X5 cm wound in the medial sacrum with dark red periwound Right buttock noted with 3 X 3 cm dark red/maroon soft boggy to touch Left lower buttocks/system also noted with intact dark red maroon soft boggy area Labs/Diagnostic Data: Laboratory Results Test 05/04/24 04:58 05/03/24 05:17 05/02/24 07:55 04/30/24 10:47 White Blood Count 5.1 10^3/uL (4.4-10.8) Red Blood Count 3.42 10^6/uL (4.5-5.90) Hemoglobin 11.9 g/dL (13.5-17.5) Hematocrit 34.2 % (41.0-53.0) Mean Corpuscular Volume 100.0 fL (80.0-100.0) Mean Corpuscular Hemoglobin 34.9 pg (28.0-32.0) Mean Corpuscular Hemoglobin Concent 34.9 g/dL (32.0-36.0) Red Cell Distribution Width 14.6 % (11.8-14.3) Platelet Count 187 10^3/uL (140-450) Mean Platelet Volume 7.5 fL (6.9-10.8) Neutrophils (%) (Auto) 39.5 % (37.0-80.0) Lymphocytes (%) (Auto) 35.5 % (10.0-50.0) Monocytes (%) (Auto) 12.7 % (0.0-12.0) Eosinophils (%) (Auto) 11.2 % (0.0-7.0) Basophils (%) (Auto) 1.1 % (0.0-2.0) Neutrophils # (Auto) 2.0 10 ^3/uL (1.6-8.6) Lymphocytes # (Auto) 1.8 10 ^3/uL (0.4-5.4) Monocytes # (Auto) 0.6 10 ^3/uL (0-1.3) Eosinophils # (Auto) 0.6 10 ^3/uL (0-0.8) Basophils # (Auto) 0.1 10 ^3/uL (0-0.2) Nucleated Red Blood Cells 0.1 % Sodium Level 142 mmol/L (136-145) Potassium Level 4.5 mmol/L (3.5-5.1) Chloride Level 106 mmol/L (98-107) Carbon Dioxide Level 30 mmol/L (20-31) Anion Gap 6 (5-15) Blood Urea Nitrogen 13 mg/dL (9-23) Creatinine 0.45 mg/dL (0.700-1.30) Glomerular Filtration Rate Calc 118 mL/min (>90) BUN/Creatinine Ratio 28.9 (10.0-20.0) Serum Glucose 100 mg/dL (74-106) Calcium Level 8.6 mg/dL (8.7-10.4) Phenytoin (Dilantin) Level 15.0 ug/mL (10-20) Vitamin B12 Level 382 pg/mL (211-911) Folic Acid 5.16 ng/mL (>5.38) Random Vancomycin Level 12.8 ug/mL (5-10) Vancomycin Level Trough 26.1 ug/mL (5-10) POC Glucose 135 mg/dl (70-106) Test 04/30/24 05:38 04/28/24 15:39 04/28/24 15:19 04/28/24 14:45 Total Bilirubin 0.4 mg/dL (0.2-1.0) Aspartate Amino Transferase (AST) 32 U/L (13-40) Alanine Aminotransferase (ALT) 21 U/L (7-40) Alkaline Phosphatase 136 U/L (46-116) Total Protein 6.5 g/dL (5.7-8.2) Albumin 3.3 g/dL (3.2-4.8) Urine Color Light-yellow (Yellow) Urine Clarity Clear (Clear) Urine pH 6.5 (5.0-9.0) Urine Specific [place] 1.015 (1.001-1.035) Urine Protein Negative (Negative) Urine Ketones Negative (Negative) Urine Blood Negative /uL (Negative) Urine Nitrite Negative (Negative) Urine Bilirubin Negative (Negative) Urine Urobilinogen Normal mg/dL (Negative) Urine Leukocyte Esterase 3+ /uL (Negative) Urine RBC 2 /hpf (0 - 3) Urine Microscopic WBC 46 /HPF (0-3) Urine Squamous Epithelial Cells Few /hpf (<5) Urine Bacteria Few /hpf (None Seen) Urine Yeast (Budding) Occasional /hpf (None Urine Glucose Normal mg/dL (Normal) Influenza Type A Antigen Negative (Negative) Influenza Type B Antigen Negative (Negative) SARS-CoV-2 Antigen (Rapid) Negative (NEGATIVE) Lactic Acid Level 1.4 mmol/L (0.4-2.0) Troponin I High Sensitivity 5 ng/L (</=54) B-Type Natriuretic Peptide 20.36 pg/mL (0-100) Other Laboratory Tests 05/04/24 04:58 Brief Hx & Hospital Course: HPI Patient is a 64-year-old male with a past medical history as described below was brought to the ED via EMS after for difficulty breathing and altered level of consciousness. According to the EMS records, patient was being fed for lunch time at [facility] and when his nurse came by to check on him, patient was noted to be cyanotic around the mouth and foaming at the mouth. EMS relays 911 was called immediately and upon their arrival, patient was still cyanotic and foaming, so they immediately started suctioning on route to the ED. EMS states patient stopped foaming and cyanosis was resolved once patient was placed on 15L of O2 with an spO2 of 97% and patient was able to state he is "fine," but unable to provide his name. EMS notes patient went in and out of consciousness on route and needed to be sternal rubbed multiple times to wake up. Patient was initially placed on 6 L oxygen via simple face mask and was subsequently titrated down to 2 L of oxygen via nasal cannula. Past medical history: Marfan's syndrome, thoracic aortic aneurysm , seizure disorder, intellectual disability, cardiomyopathy , COPD Past surgical history: Cholecystectomy Home medications: Eliquis, losartan, furosemide, atorvastatin, escitalopram phenobarbital, phenytoin Social history: Patient lives in [place] and has been bed- bound since the last 5 years. Brief hospital course Patient was admitted to the hospital with a chief complaint of altered mental status. Patient underwent head CT which showed no acute intracranial abnormality. Patient has a seizure disorder for which he is on phenytoin and phenobarbital. Suspecting toxicity from phenytoin, gabapentin serum levels were done which showed elevation. phenytoin was stopped with the patient was continued on phenobarbital. Has been levels came down patient's mental status improved and over the course of hospital stay he became more alert and followed commands. While in the hospital patient also had bilateral rhonchi and increased oxygen requirement as compared to the baseline oxygen requirement, patient was put on diuresis with furosemide. Ferritin levels were followed daily and when they came within the therapeutic range, phenytoin was started at a dose of 200 mg b.i.d.. Patient was also found to have sacral wounds for which Wound Care was consulted and patient had regular dressings every day. Wound culture showed growth of MRSA, Enterococcus faecalis, Providencia stuartii for which the patient was given vancomycin and Zosyn IV in the hospital. After stabilization patient is being [facility] in stable condition. Discharge plan Antibiotics- linezolid 600 mg b.i.d. for 14 days and cefdinir 300 mg b.i.d. for 10 days Continued on home medications with changes as follows Losartan changed from 100 mg to 50 mg daily given the patient's blood pressure in the hospital's while not being on losartan are less than 120/80mmhg Phenytoin 200 mg b.i.d. Patient to be followed up with the primary care physician in 1 week Consults/Reason for consult Wound care consultation Operations or Procedures Echocardiogram LV EF IS 65% AND IS NORMAL MODERATELY DILATED LA MODERATELY DILATED RV MODERATE DEGREE AORTIC REGURGITATION GROSSLY NORMAL VALVES NO EFFUSION NORMAL RVSP IS 23 MM OF HG AND IS NORMAL Condition at Discharge: Fair Final Diagnosis/Problems List Acute metabolic versus toxic encephalopathy Phenytoin toxicity Acute on chronic hypoxic respiratory failure Suspected aspiration pneumonia Suspected heart failure with preserved ejection fraction moderate degree aortic regurgitation Sacral wound, with likely deep tissue injury, MRSA positive Marfan syndrome History of dilated ascending aorta Seizure disorder UTI Hypercoagulable state Discharge Disposition: Snf Facility Discharge Instruct/Medications Diet: Cardiac 2g Na,low cholest Activity: No Restrictions, As Tolerated Follow Up/Referral: Follow up with the PCP in one week Medications: as per EMR Discharge Statement: "Patient was advised to return to the ER or call 911 if any headaches, dizziness, shortness of breath, chest pain, abdominal pain, bleeding, fevers, or worsening of medical condition. Patient was counseled about treatment plan, medications, possible side effects, patientverbalized understanding. All questions were answered to the best of my ability. This discharge took greater then 30 minutes in planning, reviewing documentation, counseling the patient, and discussing with other team members." ASSESSMENT ASSESSMENT Assessment Acute metabolic versus toxic encephalopathy Phenytoin toxicity Acute on chronic hypoxic respiratory failure Suspected aspiration pneumonia Suspected heart failure with preserved ejection fraction moderate degree aortic regurgitation Sacral wound, with likely deep tissue injury, MRSA positive Marfan syndrome History of dilated ascending aorta Seizure disorder UTI Hypercoagulable state Date of Service: May 04, 2024 Billing Provider: MELANIE FERRER MD Common Visit Codes: [id number] DISCH DAY >30min JOHN HEARN RESIDENT May 04, 2024 18:01 MELANIE FERRER MD May 05, 2024 14:56
== END 2024-05-04 21:06 | disposition home or self-care (01) | DRG 91 ==
LOC: EDSEX 13:08 → EDBD 13:08 → ER 13:08 → OVERFLOW 19:23 → TELE-CENTR 04-29 10:15 → CENTRAL 05-04 11:10
PROVIDERS: ADMIT Student in an Organized Health Care Education/Training Program; ATTEND Student in an Organized Health Care Education/Training Program
DX: G92.8 Other toxic encephalopathy (principal); J69.0 Pneumonitis due to inhalation of food and vomit; J96.21 Acute and chronic respiratory failure with hypoxia; Q87.40 Marfan syndrome, unspecified; N30.00 Acute cystitis without hematuria; I42.9 Cardiomyopathy, unspecified; J98.11 Atelectasis; D68.59 Other primary thrombophilia; I50.30 Unspecified diastolic (congestive) heart failure; I95.9 Hypotension, unspecified; K21.9 Gastro-esophageal reflux disease without esophagitis; R56.9 Unspecified convulsions; J44.9 Chronic obstructive pulmonary disease, unspecified; T42.0X5A Adverse effect of hydantoin derivatives, initial encounter; Z90.49 Acquired absence of other specified parts of digestive tract; Y92.89 Other specified places as the place of occurrence of the external cause; L89.156 Pressure-induced deep tissue damage of sacral region; L89.326 Pressure-induced deep tissue damage of left buttock; L89.316 Pressure-induced deep tissue damage of right buttock
CPT/HCPCS: 36415; 70450; 71045; 80048; 80053; 80185; 80202; 81001; 82607; 82746; 82962; 83605; 83880; 84484; 85025; 87040; 87077; 87081; 87086; 87088; 87186; 87205; 87426; 87804; 92610; 93005; 93306; 94640; G0378; J2543; J3490